=== PATIENT | female | born 1955 | race Caucasian/White ===

== ENCOUNTER 2017-07-18 15:03 | Inpatient (IN) | payer BC ==
[2017-07-18 16:33] LABS: Appearance,Urine Clear (Clear); Bilirubin,Urine Negative (Negative); Blood,Urine Negative (Negative); Color,Urine Yellow; Glucose,Urine (UA) 4+ (Negative); Ketones,Urine Trace (Negative); Leukocyte Esterase,Urine Small (Negative); Mucus,Urine Rare /hpf; Nitrite,Urine Negative (Negative); PH, Urine 5.5 (5.0-8.0); Protein,Urine Negative (Negative); RBC,Urine 5 /hpf (0-5); Specific Gravity,Urine 1.031 (1.001-1.035); Squamous Epithelial Cell,Urine 1 /hpf (0-4); Urobilinogen,Urine <2.0 mg/dL (<2.0); WBC,Urine 15 /hpf (0-5)
[2017-07-18] MEDS ORDERED: SODIUM CHLORIDE 0.9% 1,000 ML IV STA (16:46)
[2017-07-18] MEDS ORDERED: LORazepam 2 MG/ML INJ IV STA (16:47)
[2017-07-18] MEDS ORDERED: ACETAMINOPHEN TAB 500 MG TAB PO STA (16:47)
[2017-07-18 17:10] LABS: Basophils # (A) 0.1 k/uL (0-0.2); Basophils % (A) 0 %; Eosinophils # (A) 0.3 k/uL (0-0.7); Eosinophils % (A) 2 %; HCT 45.6 % (34.0-46.0); HGB 14.2 gm/dL (11.4-16.0); Lymphocytes # (A) 1.6 k/uL (1.0-4.8); Lymphocytes % (A) 10 %; MCH 26.6 pg (25.0-35.0); MCHC 31.2 g/dL (31.0-37.0); MCV 85.3 fL (80.0-100.0); Mean Platelet Volume 6.7; Monocytes # (A) 0.8 k/uL (0-1.0); Monocytes % (A) 5 %; Neutrophils # (A) 13.9 k/uL (1.3-7.7); Neutrophils % (A) 83 %; Platelet Count 376 k/uL (150-450); RBC 5.35 m/uL (3.80-5.40); RDW 14.3 % (11.5-15.5); WBC 16.7 k/uL (3.8-10.6)
[2017-07-18 17:20] LABS: ALT 21 U/L (9-52); AST 16 U/L (14-36); Albumin 4.1 g/dL (3.5-5.0); Alkaline Phosphatase 131 U/L (38-126); Anion Gap 13 mmol/L; Blood Urea Nitrogen 19 mg/dL (7-17); Calcium 10.2 mg/dL (8.4-10.2); Carbon Dioxide 27 mmol/L (22-30); Chloride 96 mmol/L (98-107); Glucose 169 mg/dL (74-99); Potassium 3.7 mmol/L (3.5-5.1); Prothrombin Time 9.6 sec (9.0-12.0); Sodium 136 mmol/L (137-145); Total Bilirubin 0.6 mg/dL (0.2-1.3); Total Protein 7.3 g/dL (6.3-8.2)
[2017-07-18 17:28] LABS: Partial Thromboplastin Time 20.7 sec (22.0-30.0)
--- NOTE | 2017-07-18 17:30 | XR ---
EXAMINATION TYPE: XR chest 2V DATE OF EXAM: 07/18/2017 COMPARISON: 12/24/2009 HISTORY: Cough and fever for 3 weeks TECHNIQUE: Frontal and lateral views of the chest are obtained. FINDINGS: There is no focal air space opacity, pleural effusion, or pneumothorax seen. The cardiac silhouette size is within normal limits. The osseous structures are intact. Mild acromio clavicular arthropathy and degenerative changes of the thoracic spine are noted. IMPRESSION: No acute cardiopulmonary process.
--- NOTE | 2017-07-18 17:34 | ED ---
General Adult HPI - General Chief complaint: Recheck/Abnormal Lab/Rx Stated complaint: poss blood infection Time Seen by Provider: 07/18/17 16:31 Source: patient, RN notes reviewed Mode of arrival: ambulatory Limitations: no limitations - History of Present Illness Initial comments: 62-year-old female presents to the emergency department with a chief complaint of body shakes. She's been sick on and off for the last month she's been on different antibiotics. She states last night she just started shaking. She states she's had fevers up to 100.3. They called her doctor and referred here. She has a falls traumas or injuries. She states she has had a cough. They were concerned due to her continued symptoms so they thought that she should be seen.Patient denies any recent shortness of breath, chest pain, back pain, abdominal pain, nausea vomiting, numbness or tingling, dysuria or hematuria, constipation or diarrhea, headaches or visual changes, or any other current symptoms. - Related Data Home Medications Medication Instructions Recorded Confirmed Aspirin EC [Ecotrin Low Dose] 81 mg PO BID 07/18/17 07/18/17 Atorvastatin [Lipitor] 40 mg PO DAILY 07/18/17 07/18/17 Canagliflozin [Invokana] 100 mg PO DAILY 07/18/17 07/18/17 Cetirizine HCl [Zyrtec] 10 mg PO HS 07/18/17 07/18/17 INSULIN LISPRO (humaLOG) [humaLOG] See Protocol SQ AC-TID PRN 07/18/17 07/18/17 Insulin Glargine [Lantus] 100 unit SQ HS 07/18/17 07/18/17 Levothyroxine Sodium [Levoxyl] 50 mcg PO HS 07/18/17 07/18/17 Losartan Potassium [Cozaar] 100 mg PO DAILY 07/18/17 07/18/17 Omeprazole 20 mg PO BID 07/18/17 07/18/17 Triamterene/Hydrochlorothiazid 1 tab PO DAILY 07/18/17 07/18/17 [Triamterene-Hctz 37.5-25 mg Tb] amLODIPine [Norvasc] 10 mg PO DAILY 07/18/17 07/18/17 Allergies Allergy/AdvReac Type Severity Reaction Status Date / Time azithromycin AdvReac Nausea & Verified 07/18/17 16:31 Vomiting Review of Systems ROS Statement: Those systems with pertinent positive or pertinent negative responses have been documented in the HPI. ROS Other: All systems not noted in ROS Statement are negative. Past Medical History Past Medical History: Diabetes Mellitus, GERD/Reflux, Hyperlipidemia, Hypertension, Sleep Apnea/CPAP/BIPAP History of Any Multi-Drug Resistant Organisms: None Reported Past Surgical History: Cholecystectomy, Hysterectomy, Tubal Ligation Additional Past Surgical History / Comment(s): D AND c, RECTOCELE, BLADDER SLING Past Psychological History: No Psychological Hx Reported Smoking Status: Never smoker Past Alcohol Use History: Occasional Past Drug Use History: None Reported General Exam - General Exam Comments Initial Comments: General: The patient is awake and alert, in no distress, and does not appear acutely ill. Eye: Pupils are equal, round and reactive to light, extra-ocular movements are intact; there is normal conjunctiva bilaterally. No signs of icterus. Ears, nose, mouth and throat: There are moist mucous membranes. Neck: The neck is supple, there is no tenderness. Cardiovascular: There is a regular rate and rhythm. No murmur, rub or gallop is appreciated. Respiratory: Lungs are clear to auscultation, respirations are non-labored, breath sounds are equal. No wheezes, stridor, rales, or rhonchi. Gastrointestinal: Soft, non-distended, non-tender abdomen without masses or organomegaly noted. There is no rebound or guarding present. No CVA tenderness. Bowel sounds are unremarkable. Back: There is no tenderness to palpation in the midline. There is no obvious deformity. No rashes noted. Musculoskeletal: Normal ROM, no tenderness, There is no pedal edema. There is no calf tenderness or swelling. Sensation intact. Pulses equal bilaterally 2+. Neurological: CN II-XII intact, There are no obvious motor or sensory deficits. Coordination appears grossly intact. Speech is normal. Skin: Skin is warm and dry and no rashes or lesions are noted. Psychiatric: Cooperative, appropriate mood & affect, normal judgment. Limitations: no limitations Course Vital Signs 07/18/17 07/18/17 15:39 16:37 Temperature 98.9 F 99.3 F Pulse Rate 111 H 110 H Respiratory 18 18 Rate Blood Pressure 133/78 137/74 O2 Sat by Pulse 97 98 Oximetry Medical Decision Making - Medical Decision Making 62-year-old female presents for shaking. This time patient does appear to have elevated white blood cell, along with UTI. Patient has been on multiple antibiotics outpatient with no improvement. This and we will start patient on Levaquin. Does appear the UTI. The source. Patient's blood pressure has remained stable here. Patient will be admitted at this time. Patient is in agreement with this plan. Patient will be admitted to Dr. Lion. All questions have been answered. - Lab Data Result diagrams: 07/18/17 16:54 07/18/17 16:54 Lab Results 07/18/17 07/18/17 07/18/17 Range/Units 16:13 16:54 16:54 WBC 16.7 H (3.8-10.6) k/uL RBC 5.35 (3.80-5.40) m/uL Hgb 14.2 (11.4-16.0) gm/dL Hct 45.6 (34.0-46.0) % MCV 85.3 (80.0-100.0) fL MCH 26.6 (25.0-35.0) pg MCHC 31.2 (31.0-37.0) g/dL RDW 14.3 (11.5-15.5) % Plt Count 376 (150-450) k/uL Neutrophils % 83 % Lymphocytes % 10 % Monocytes % 5 % Eosinophils % 2 % Basophils % 0 % Neutrophils # 13.9 H (1.3-7.7) k/uL Lymphocytes # 1.6 (1.0-4.8) k/uL Monocytes # 0.8 (0-1.0) k/uL Eosinophils # 0.3 (0-0.7) k/uL Basophils # 0.1 (0-0.2) k/uL PT (9.0-12.0) sec INR (<1.2) APTT (22.0-30.0) sec Sodium 136 L (137-145) mmol/L Potassium 3.7 (3.5-5.1) mmol/L Chloride 96 L (98-107) mmol/L Carbon Dioxide 27 (22-30) mmol/L Anion Gap 13 mmol/L BUN 19 H (7-17) mg/dL Creatinine 0.70 (0.52-1.04) mg/dL Est GFR (MDRD) Af Amer >60 (>60 ml/min/1.73 sqM) Est GFR (MDRD) Non-Af >60 (>60 ml/min/1.73 sqM) Glucose 169 H (74-99) mg/dL Plasma Lactic Acid [place] (0.7-2.0) mmol/L Calcium 10.2 (8.4-10.2) mg/dL Total Bilirubin 0.6 (0.2-1.3) mg/dL AST 16 (14-36) U/L ALT 21 (9-52) U/L Alkaline Phosphatase 131 H (38-126) U/L Total Protein 7.3 (6.3-8.2) g/dL Albumin 4.1 (3.5-5.0) g/dL Urine Color Yellow Urine Appearance Clear (Clear) Urine pH 5.5 (5.0-8.0) Ur Specific [place] 1.031 (1.001-1.035) Urine Protein Negative (Negative) Urine Glucose (UA) 4+ H (Negative) Urine Ketones Trace H (Negative) Urine Blood Negative (Negative) Urine Nitrite Negative (Negative) Urine Bilirubin Negative (Negative) Urine Urobilinogen <2.0 (<2.0) mg/dL Ur Leukocyte Esterase Small H (Negative) Urine RBC 5 (0-5) /hpf Urine WBC 15 H (0-5) /hpf Ur Squamous Epith Cells 1 (0-4) /hpf Urine Mucus Rare H (None) /hpf 07/18/17 07/18/17 Range/Units 16:54 16:54 WBC (3.8-10.6) k/uL RBC (3.80-5.40) m/uL Hgb (11.4-16.0) gm/dL Hct (34.0-46.0) % MCV (80.0-100.0) fL MCH (25.0-35.0) pg MCHC (31.0-37.0) g/dL RDW (11.5-15.5) % Plt Count (150-450) k/uL Neutrophils % % Lymphocytes % % Monocytes % % Eosinophils % % Basophils % % Neutrophils # (1.3-7.7) k/uL Lymphocytes # (1.0-4.8) k/uL Monocytes # (0-1.0) k/uL Eosinophils # (0-0.7) k/uL Basophils # (0-0.2) k/uL PT 9.6 (9.0-12.0) sec INR 1.0 (<1.2) APTT 20.7 L (22.0-30.0) sec Sodium (137-145) mmol/L Potassium (3.5-5.1) mmol/L Chloride (98-107) mmol/L Carbon Dioxide (22-30) mmol/L Anion Gap mmol/L BUN (7-17) mg/dL Creatinine (0.52-1.04) mg/dL Est GFR (MDRD) Af Amer (>60 ml/min/1.73 sqM) Est GFR (MDRD) Non-Af (>60 ml/min/1.73 sqM) Glucose (74-99) mg/dL Plasma Lactic Acid [place] 1.4 (0.7-2.0) mmol/L Calcium (8.4-10.2) mg/dL Total Bilirubin (0.2-1.3) mg/dL AST (14-36) U/L ALT (9-52) U/L Alkaline Phosphatase (38-126) U/L Total Protein (6.3-8.2) g/dL Albumin (3.5-5.0) g/dL Urine Color Urine Appearance (Clear) Urine pH (5.0-8.0) Ur Specific [place] (1.001-1.035) Urine Protein (Negative) Urine Glucose (UA) (Negative) Urine Ketones (Negative) Urine Blood (Negative) Urine Nitrite (Negative) Urine Bilirubin (Negative) Urine Urobilinogen (<2.0) mg/dL Ur Leukocyte Esterase (Negative) Urine RBC (0-5) /hpf Urine WBC (0-5) /hpf Ur Squamous Epith Cells (0-4) /hpf Urine Mucus (None) /hpf - Radiology Data Radiology results: report reviewed, image reviewed Disposition Clinical Impression: UTI (urinary tract infection), Failure of outpatient treatment Disposition: ADMITTED IP TO THIS [facility] Condition: Stable Referrals: Rusty Arenas DO [Primary Care Provider] - 1-2 days Decision Date: 07/18/17 Decision Time: 18:08
[2017-07-18] MEDS ORDERED: NALOXONE 0.4 MG/ML 1 ML VIAL IV PRN (18:08)
[2017-07-18] MEDS ORDERED: IBUPROFEN 400 MG TAB PO PRN (18:08)
[2017-07-18] MEDS ORDERED: ACETAMINOPHEN TAB 325 MG TAB PO PRN (18:08)
[2017-07-18 19:31] VITALS: BMI 41.7
[2017-07-18 19:58] LABS: Glucose,Whole Blood 131 mg/dL (75-99)
[2017-07-18] MEDS: LORATADINE 10 MG TAB PO SCH (20:32)
[2017-07-18] MEDS: PANTOPRAZOLE 40 MG TABLET PO SCH (20:32)
[2017-07-18] MEDS: ASPIRIN 81 MG PO SCH (20:32)
[2017-07-18] MEDS: LEVOTHYROXINE 50 MCG TAB PO SCH (20:32)
[2017-07-18] MEDS: INSULIN ASPART 100 UNIT/ML 1 ML 10 ML VIAL SQ SCH (20:34)
[2017-07-18] MEDS ORDERED: LEVOFLOXACIN 500MG-D5W PMX 500 MG in DEXTROSE/WATER 1 100ML.BAG IVPB SCH (21:00)
[2017-07-18] MEDS: INSULIN DETEMIR 100 UNIT/ML 10 ML VIAL SQ SCH (22:12)
[2017-07-18] MEDS: SODIUM CHLORIDE 0.9% 1,000 ML IV SCH (23:22)
[2017-07-19] MEDS: SODIUM CHLORIDE 0.9% 1,000 ML IV SCH ×2 (06:15→07:00)
[2017-07-19 07:11] LABS: Glucose,Whole Blood 108 mg/dL (75-99)
[2017-07-19] MEDS: INSULIN ASPART 100 UNIT/ML 1 ML 10 ML VIAL SQ SCH ×4 (07:40→21:20)
[2017-07-19] MEDS: PANTOPRAZOLE 40 MG TABLET PO SCH ×2 (07:47→20:55)
[2017-07-19] MEDS: ATORVASTATIN 40 MG TAB PO SCH (07:47)
[2017-07-19] MEDS: amLODIPine 10 MG TAB PO SCH (07:47)
[2017-07-19] MEDS: ASPIRIN 81 MG PO SCH ×2 (07:47→20:54)
[2017-07-19] MEDS: LOSARTAN 50 MG TAB PO SCH (07:47)
--- NOTE | 2017-07-19 07:49 | HP ---
HISTORY AND PHYSICAL DATE OF SERVICE: 07/18/2017 I am covering for Dr. Arenas. CHIEF COMPLAINTS: Fever and infection. HISTORY OF PRESENT ILLNESS: This 62-year-old woman with a past medical history of multiple medical problems including diabetes mellitus, GERD, hypertension, hyperlipidemia, sleep apnea, being followed by Dr. Arenas in the outpatient setting. Over the past several days, the patient had a fever on and off. Patient started shaking. The patient was playing cards with friends and unable to even complete the game. Fever up to 100.3 was noted and patient also had significant cough and sputum and nasal drainage also. The patient came to [facility] and was admitted for further evaluation and treatment. UTI was suspected. On admission, white count was 16.7 and UA showed 15 WBC. The flu swab is negative. Chest x-ray was done at admission, which I reviewed at length. It showed no acute pulmonary disease. There is no history of any palpitations, hematochezia or melena at this time. PAST MEDICAL HISTORY: History of diabetes mellitus, GERD, hypertension, hyperlipidemia, sleep apnea, cholecystectomy. MEDICATIONS: Medications prior to admission include: 1. Humalog scale a.c. t.i.d. 2. Levoxyl 50 mcg p.o. q.h.s. 3. Lantus 100 q.h.s. 4. Zyrtec 10 mg daily. 5. Norvasc 10 mg p.o. daily. 6. Triamterene hydrochlorothiazide 1 tab p.o. daily. 7. Omeprazole 20 mg p.o. b.i.d. 8. Cozaar 100 mg p.o. daily. 9. Invokana 100 mg p.o. daily. 10.Lipitor 40 mg p.o. daily. 11.Ecotrin 81 mg p.o. b.i.d. ALLERGIES: AZITHROMYCIN. FAMILY HISTORY: History of coronary artery disease, hypertension, diabetes in the family. SOCIAL HISTORY: No history of smoking. No history of alcohol intake. REVIEW OF SYSTEMS: ENT: No diminished hearing or diminished vision. CARDIOVASCULAR SYSTEM: No angina. RESPIRATORY SYSTEM: As mentioned earlier. GI: No nausea or vomiting. : As mentioned earlier. NERVOUS SYSTEM: No numbness or weakness. ALLERGY/IMMUNOLOGY: No history of asthma or hayfever. MUSCULOSKELETAL: as mentioned earlier. HEMATOLOGY/ONCOLOGY: No history of anemia. ENDOCRINE: No history of dm. CONSTITUTIONAL: As mentioned earlier. DERMATOLOGY: Negative. RHEUMATOLOGY: Negative. PSYCHIATRY: As mentioned earlier. PHYSICAL EXAMINATION: The patient is alert and oriented x3. Pulse is 93, blood pressure is 126/56, respirations 14, temperature 98.4, pulse ox 94% on room air. HEENT: Conjunctivae normal Oral mucosa moist. Neck is no jugular venous distention. No carotid bruit. No lymph node enlargement. CARDIOVASCULAR: S1 and S2 muffled. No S3 or S4. RESPIRATORY: Breath sounds diminished at the bases. A few scattered rhonchi and crackles. ABDOMEN: Soft, nontender. No mass palpable. LEGS: No edema, no swelling. NERVOUS SYSTEM: Higher functions as mentioned earlier. Moves all 4 limbs. No focal motor or sensory deficits. LYMPHATICS: No lymphadenopathy of the neck, axillae or groin. SKIN: No ulcer, rash or bleeding. LABS: WBC 16.7. Sodium 136. UA noted. ASSESSMENT: 1. Possible urinary tract infection with sepsis. 2. Possible acute purulent tracheobronchitis. 3. Hyponatremia. 4. Increased WBC. 5. History of diabetes mellitus. 6. History of gastroesophageal reflux disease. 7. Hypertension. 8. Hyperlipidemia. 9. Sleep apnea. 10.History of cholecystectomy. RECOMMENDATIONS AND DISCUSSION: In this 62-year-old woman who presented with multiple complex medical issues, we will monitor the patient closely. Continue the current medications. Continue symptomatic treatment. Patient was started on broad-spectrum IV antibiotics. Otherwise, I would recommend continue the rest of medications. The flu is negative. Resume the home medications and further recommendations to follow. A copy of the dictation forwarded to Dr. Arenas who is the primary physician. Dr. Arenas will follow. MMODL / IJN: [id number] / MTDD
[2017-07-19 08:03] LABS: Basophils % (A) 0 %; Eosinophils # (A) 0.2 k/uL (0-0.7); Eosinophils % (A) 3 %; HGB 12.3 gm/dL (11.4-16.0); Lymphocytes # (A) 2.1 k/uL (1.0-4.8); Lymphocytes % (A) 22 %; MCH 26.3 pg (25.0-35.0); MCHC 31.4 g/dL (31.0-37.0); MCV 83.7 fL (80.0-100.0); Mean Platelet Volume 6.8; Monocytes # (A) 0.5 k/uL (0-1.0); Monocytes % (A) 5 %; Neutrophils # (A) 6.6 k/uL (1.3-7.7); Neutrophils % (A) 68 %; Platelet Count 324 k/uL (150-450); RBC 4.66 m/uL (3.80-5.40); WBC 9.6 k/uL (3.8-10.6)
[2017-07-19 08:19] LABS: ALT 19 U/L (9-52); AST 12 U/L (14-36); Alkaline Phosphatase 95 U/L (38-126); Anion Gap 7 mmol/L; Blood Urea Nitrogen 15 mg/dL (7-17); Calcium 8.8 mg/dL (8.4-10.2); Carbon Dioxide 27 mmol/L (22-30); Chloride 104 mmol/L (98-107); Glucose 101 mg/dL (74-99); Potassium 3.6 mmol/L (3.5-5.1); Sodium 138 mmol/L (137-145); Total Bilirubin 0.5 mg/dL (0.2-1.3); Total Protein 5.6 g/dL (6.3-8.2)
[2017-07-19] MEDS: TRIAMTERENE-HCTZ 37.5-25MG 1 EACH TAB PO SCH (10:08)
[2017-07-19] MEDS: Canagliflozin [Invokana] 100 MG PO SCH (10:08)
[2017-07-19 11:41] LABS: Glucose,Whole Blood 99 mg/dL (75-99)
[2017-07-19 12:50] LABS: Hemoglobin A1C 9.8 % (4.0-6.0)
[2017-07-19 17:17] LABS: Glucose,Whole Blood 135 mg/dL (75-99)
[2017-07-19] MEDS: LEVOTHYROXINE 50 MCG TAB PO SCH (20:54)
[2017-07-19] MEDS: LORATADINE 10 MG TAB PO SCH (20:55)
[2017-07-19] MEDS ORDERED: LEVOFLOXACIN 500 MG TAB PO SCH (21:00)
[2017-07-19] MEDS ORDERED: INSULIN GLARGINE 100 UNIT SQ SCH (21:00)
[2017-07-19 21:09] LABS: Glucose,Whole Blood 148 mg/dL (75-99)
[2017-07-19] MEDS: INSULIN DETEMIR 100 UNIT/ML 10 ML VIAL SQ SCH (21:20)
--- NOTE | 2017-07-20 01:03 | PN ---
PROGRESS NOTE DATE OF SERVICE: 07/19/2017. HISTORY: The patient is a pleasant 62-year-old white female who has multiple medical problems, most glaring is diabetes type 2 and obstructive sleep apnea. Her diabetes is not well controlled. Over the past several days she has been have a pronounced fever on and off and she started shaking uncontrollably with rigors today. The patient became very weak and was unable to ambulate without significant effort. The patient was seen last night by Dr. Lion for admission through the Emergency Department and subsequently treated with sepsis protocol and for urinary tract infection. Flu swab was done, which was negative. PHYSICAL EXAM: She is alert and oriented x3. HEENT: Head is normocephalic, atraumatic. NECK: Supple. No JVD. HEART: Regular rate and rhythm. LUNGS: Clear to auscultation. ABDOMEN: Soft, nontender. No rebound, rigidity, guarding. EXTREMITIES: No cyanosis, clubbing or jaundice. NEUROLOGIC: Cranial nerves 2 through 12 grossly intact. She does have slight tremor to the extremities. IMPRESSION: 1. Urinary tract infection with sepsis. 2. Acute purulent tracheobronchitis. 3. Leukocytosis. 4. Diabetes. 5. Obstructive sleep apnea. PLAN: Continue to follow labs and blood cultures. Continue IV antibiotics and hydration. MMODL / IJN: [id number] /
[2017-07-20] MEDS: SODIUM CHLORIDE 0.9% 1,000 ML IV SCH (03:10)
[2017-07-20 07:07] LABS: Glucose,Whole Blood 72 mg/dL (75-99)
[2017-07-20 07:38] VITALS: RESP 16
[2017-07-20 07:51] VITALS: BP 162/87; TEMP 97.5
[2017-07-20] MEDS: amLODIPine 10 MG TAB PO SCH (08:50)
[2017-07-20] MEDS: ASPIRIN 81 MG PO SCH (08:50)
[2017-07-20] MEDS: ATORVASTATIN 40 MG TAB PO SCH (08:50)
[2017-07-20] MEDS: PANTOPRAZOLE 40 MG TABLET PO SCH (08:51)
[2017-07-20] MEDS: LOSARTAN 50 MG TAB PO SCH (08:51)
[2017-07-20] MEDS: TRIAMTERENE-HCTZ 37.5-25MG 1 EACH TAB PO SCH (08:51)
[2017-07-20] MEDS: Canagliflozin [Invokana] 100 MG PO SCH (08:51)
[2017-07-20] MEDS: INSULIN ASPART 100 UNIT/ML 1 ML 10 ML VIAL SQ SCH (08:55)
[2017-07-20 09:28] VITALS: PULSE 88
== END 2017-07-20 10:50 | disposition home or self-care (01) | DRG 872 ==
LOC: EC 15:03 → 5MS5E 18:17
PROVIDERS: ADMIT Family Medicine; ATTEND Family Medicine
DX: A41.9 Sepsis, unspecified organism (principal); E87.1 Hypo-osmolality and hyponatremia; N39.0 Urinary tract infection, site not specified; G47.33 Obstructive sleep apnea (adult) (pediatric); J20.9 Acute bronchitis, unspecified; K21.9 Gastro-esophageal reflux disease without esophagitis; I10 Essential (primary) hypertension; E78.5 Hyperlipidemia, unspecified; Z90.49 Acquired absence of other specified parts of digestive tract; Z90.710 Acquired absence of both cervix and uterus; E11.9 Type 2 diabetes mellitus without complications; Z79.82 Long term (current) use of aspirin; Z79.4 Long term (current) use of insulin; Z79.899 Other long term (current) drug therapy; Z88.1 Allergy status to other antibiotic agents
CPT/HCPCS: 36415; 71046; 80053; 81001; 83036; 83605; 85025; 85610; 85730; 87040; 87086; 87502; 96361; 96374; 99284

== ENCOUNTER → 2018-01-25 | Outpatient (CLI) | payer BC ==
--- NOTE | 2018-01-26 07:44 | MM ---
Reason for exam: screening (asymptomatic). Last mammogram was performed 6 years and 5 months ago. History: Patient is postmenopausal. Physical Findings: A clinical breast exam by your physician is recommended on an annual basis and results should be correlated with mammographic findings. MG 3D Screening Mammo W/Cad Bilateral CC and MLO view(s) were taken. Prior study comparison: August 17, 2011, bilateral digital screening mammo w/CAD. August 11, 2010, bilateral digital screening mammo w/CAD. No significant changes when compared with prior studies. ASSESSMENT: Negative, BI-RAD 1 RECOMMENDATION: Routine screening mammogram of both breasts in 1 year.
== END | disposition home or self-care (01) ==
LOC: RADMAMWWP 06:56
PROVIDERS: ATTEND Family Medicine
DX: Z12.31 Encounter for screening mammogram for malignant neoplasm of breast (principal)
CPT/HCPCS: 77063; 77067

== ENCOUNTER → 2020-03-26 | Outpatient (CLI) | payer MEDICARE, BC ==
--- NOTE | 2020-03-26 09:39 | XR ---
EXAMINATION TYPE: XR chest 2V DATE OF EXAM: 03/26/2020 COMPARISON: Prior chest x-ray 07/18/2017 HISTORY: Pleural effusion shortness of breath TECHNIQUE: Frontal and lateral views of the chest are obtained. FINDINGS: There is blunting of the left costophrenic angle. Aorta is dense. Cardiac mediastinal silh ouette thought to be stable accounting for rotation. No evident pneumothorax. IMPRESSION: Small left pleural effusion and associated atelectasis, correlate to exclude pneumonia. Follow-up recommended.
== END | disposition home or self-care (01) ==
LOC: RADXRMAIN 09:04
PROVIDERS: ATTEND Family Medicine
DX: J90 Pleural effusion, not elsewhere classified (principal); J98.11 Atelectasis
CPT/HCPCS: 71046

== ENCOUNTER 2020-04-02 13:53 | Emergency (ER) | payer MEDICARE, BC ==
[2020-04-02 14:36] LABS: Appearance,Urine Clear (Clear); Bilirubin,Urine Negative (Negative); Blood,Urine Negative (Negative); Color,Urine Yellow; Glucose,Urine (UA) 4+ (Negative); Ketones,Urine Negative (Negative); Leukocyte Esterase,Urine Negative (Negative); Nitrite,Urine Negative (Negative); Protein,Urine Negative (Negative); Specific Gravity,Urine 1.034 (1.001-1.035); Urobilinogen,Urine <2.0 mg/dL (<2.0)
[2020-04-02] MEDS ORDERED: ACETAMINOPHEN TAB 500 MG TAB PO STA (15:04)
[2020-04-02] MEDS ORDERED: SODIUM CHLORIDE 0.9% 500 ML 500 ML IV STA (15:06)
--- NOTE | 2020-04-02 15:20 | ED ---
General Adult HPI - General Chief complaint: Fever Stated complaint: AFIB/SOB/COUGH/CONFUSION Time Seen by Provider: 04/02/20 15:03 Source: patient Mode of arrival: ambulatory Limitations: no limitations - History of Present Illness Initial comments: Dictation was produced using [employer] dictation software. please excuse any grammatical, word or spelling errors. This patient was cared for during a federal and state declared state of emergency secondary to Covid 19 Chief Complaint: 64-year-old female presents with 3-4 days of cough, congestion History of Present Illness: Is a 64-year-old female she presents today with cough, congestion. She was recently diagnosed with atrial fibrillation. She just started taken Alquist. Patient was diagnosed with A. fib approximately 1-2 weeks ago. States that over the last 3-4 days she's developed a nonproductive cough. She also has a sensation of unsteadiness to her gait. She denies any numbness and paresthesias to the arms or legs. Denies any dysuria. No diarrhea or abdominal pain. She has no chest pain. No sore throat. She does feel congested in her nose. No obvious contacts with anyone with Covid 19. She's had similar symptoms ask my one month ago and was on antibiotics. Patient does have constitutional symptoms. She states that she know she had a fever until being in triage when they did her vitals. Concerned because she's had sepsis in the past. The ROS documented in this emergency department record has been reviewed and confirmed by me. Those systems with pertinent positive or negative responses have been documented in the HPI. All other systems are other negative and/or noncontributory. PHYSICAL EXAM: General Impression: Alert and oriented x3, not in acute distress HEENT: Normocephalic atraumatic, extra-ocular movements intact, pupils equal and reactive to light bilaterally, mucous membranes moist, no oropharyngeal erythema Cardiovascular: Heart regular rate and rhythm Chest: Able to complete full sentences, no retractions, no tachypnea, lungs clear to auscultation bilaterally Abdomen: abdomen soft, non-tender, non-distended, no organomegaly Musculoskeletal: Pulses present and equal in all extremities, no peripheral edema Motor: no focal deficits noted Neurological: CN II-XII grossly intact, no focal motor or sensory deficits noted Skin: Intact with no visualized rashes Psych: Normal affect and mood ED course: 64-year-old female presents with infectious respiratory symptoms. Vital signs upon arrival shows temperature 102.4, heart rate of 123, rest of vital signs within acceptable limits. Laboratory evaluation obtained. No leukocytosis. Coag panel is unremarkable. Metabolic panel shows sodium 120 likely secondary to pseudohyponatremia from elevated glucose. BUN is 30 and creatinine 0.86 concerning for mild dehydration. Urinalysis shows 4+ glucose. Rapid coronavirus test is negative. CRP is mildly elevated at 16.2. Chest x-ray shows small right lung field pulmonary nodule. Patient observed in emergency Department per she is given Tylenol and intravenous fluids. Repeat vitals are improved. Well-appearing upo n reevaluation and reexamination. Disposition options were discussed with patient and she is agreeable for discharge to return to the emergency department if her symptoms get worse. At this point is concern that patient's symptoms are secondary to bacterial sinusitis. She'll be given prescription for antibiotics. Patient was told that her symptoms could reflect coronavirus with false negative test. She does have a pending PCR study. She is advised to follow-up with her primary care physician for reevaluation after antibiotics and to follow-up for right pulmonary lung nodule. An is agreeable to plan. - Related Data Home Medications Medication Instructions Recorded Confirmed Aspirin EC [Ecotrin Low Dose] 81 mg PO BID 07/18/17 07/18/17 Atorvastatin [Lipitor] 40 mg PO DAILY 07/18/17 07/18/17 Canagliflozin [Invokana] 100 mg PO DAILY 07/18/17 07/18/17 Cetirizine HCl [Zyrtec] 10 mg PO HS 07/18/17 07/18/17 INSULIN LISPRO (humaLOG) [humaLOG] See Protocol SQ AC-TID PRN 07/18/17 07/18/17 Insulin Glargine [Lantus] 100 unit SQ HS 07/18/17 07/18/17 Levothyroxine Sodium [Levoxyl] 50 mcg PO HS 07/18/17 07/18/17 Losartan Potassium [Cozaar] 100 mg PO DAILY 07/18/17 07/18/17 Omeprazole 20 mg PO BID 07/18/17 07/18/17 Triamterene/Hydrochlorothiazid 1 tab PO DAILY 07/18/17 07/18/17 [Triamterene-Hctz 37.5-25 mg Tb] amLODIPine [Norvasc] 10 mg PO DAILY 07/18/17 07/18/17 Previous Rx's Medication Instructions Recorded Levofloxacin [Levaquin] 500 mg PO HS 7 Days #7 tab 07/20/17 Amoxic-Pot Clav 875-125Mg 1 tab PO BID 10 Days #20 tab 04/02/20 [Augmentin 875-125] Allergies Allergy/AdvReac Type Severity Reaction Status Date / Time azithromycin AdvReac Nausea & Verified 04/02/20 14:09 Vomiting Review of Systems ROS Statement: Those systems with pertinent positive or pertinent negative responses have been documented in the HPI. ROS Other: All systems not noted in ROS Statement are negative. Past Medical History Past Medical History: Atrial Fibrillation, Diabetes Mellitus, GERD/Reflux, Hyperlipidemia, Hypertension, Sleep Apnea/CPAP/BIPAP History of Any Multi-Drug Resistant Organisms: None Reported Past Surgical History: Cholecystectomy, Hysterectomy, Tubal Ligation Additional Past Surgical History / Comment(s): D AND c, RECTOCELE, BLADDER SLING Past Anesthesia/Blood Transfusion Reactions: No Reported Reaction Past Psychological History: No Psychological Hx Reported Smoking Status: Never smoker Past Alcohol Use History: Occasional Past Drug Use History: None Reported - Past Family History Father Family Medical History: Coronary Artery Disease (CAD), Hypertension Additional Family Medical History / Comment(s): DM General Exam Limitations: no limitations Course Vital Signs 04/02/20 04/02/20 14:03 17:10 Temperature 102.4 F H 101.6 F H Pulse Rate 123 H 106 H Respiratory 24 20 Rate Blood Pressure 117/75 O2 Sat by Pulse 97 Oximetry Medical Decision Making - Lab Data Result diagrams: 04/02/20 15:35 04/02/20 15:35 Lab Results 04/02/20 04/02/20 04/02/20 Range/Units 14:10 14:19 15:35 WBC 9.3 (3.8-10.6) k/uL RBC 4.98 (3.80-5.40) m/uL Hgb 13.1 (11.4-16.0) gm/dL Hct 40.6 (34.0-46.0) % MCV 81.6 (80.0-100.0) fL MCH 26.3 (25.0-35.0) pg MCHC 32.3 (31.0-37.0) g/dL RDW 14.2 (11.5-15.5) % Plt Count 509 H (150-450) k/uL MPV 6.8 Neutrophils % 76 % Lymphocytes % 13 % Monocytes % 7 % Eosinophils % 2 % Basophils % 1 % Neutrophils # 7.1 (1.3-7.7) k/uL Lymphocytes # 1.2 (1.0-4.8) k/uL Monocytes # 0.6 (0-1.0) k/uL Eosinophils # 0.2 (0-0.7) k/uL Basophils # 0.1 (0-0.2) k/uL PT (9.0-12.0) sec INR (<1.2) APTT (22.0-30.0) sec Sodium (137-145) mmol/L Potassium (3.5-5.1) mmol/L Chloride (98-107) mmol/L Carbon Dioxide (22-30) mmol/L Anion Gap mmol/L BUN (7-17) mg/dL Creatinine (0.52-1.04) mg/dL Est GFR (CKD-EPI)AfAm (>60 ml/min/1.73 sqM) Est GFR (CKD-EPI)NonAf (>60 ml/min/1.73 sqM) Glucose (74-99) mg/dL Plasma Lactic Acid Pilo (0.7-2.0) mmol/L Calcium (8.4-10.2) mg/dL Magnesium (1.6-2.3) mg/dL Total Bilirubin (0.2-1.3) mg/dL AST (14-36) U/L ALT (4-34) U/L Alkaline Phosphatase (38-126) U/L C-Reactive Protein (<10.0) mg/L Total Protein (6.3-8.2) g/dL Albumin (3.5-5.0) g/dL Urine Color Yellow Urine Appearance Clear (Clear) Urine pH 6.0 (5.0-8.0) Ur Specific [place] 1.034 (1.001-1.035) Urine Protein Negative (Negative) Urine Glucose (UA) 4+ H (Negative) Urine Ketones Negative (Negative) Urine Blood Negative (Negative) Urine Nitrite Negative (Negative) Urine Bilirubin Negative (Negative) Urine Urobilinogen <2.0 (<2.0) mg/dL Ur Leukocyte Esterase Negative (Negative) Coronavirus (PCR) Not Detected (Not Detectd) 04/02/20 04/02/20 04/02/20 Range/Units 15:35 15:35 15:35 WBC (3.8-10.6) k/uL RBC (3.80-5.40) m/uL Hgb (11.4-16.0) gm/dL Hct (34.0-46.0) % MCV (80.0-100.0) fL MCH (25.0-35.0) pg MCHC (31.0-37.0) g/dL RDW (11.5-15.5) % Plt Count (150-450) k/uL MPV Neutrophils % % Lymphocytes % % Monocytes % % Eosinophils % % Basophils % % Neutrophils # (1.3-7.7) k/uL Lymphocytes # (1.0-4.8) k/uL Monocytes # (0-1.0) k/uL Eosinophils # (0-0.7) k/uL Basophils # (0-0.2) k/uL PT 10.2 (9.0-12.0) sec INR 1.0 (<1.2) APTT 25.2 (22.0-30.0) sec Sodium 128 L (137-145) mmol/L Potassium 4.2 (3.5-5.1) mmol/L Chloride 97 L (98-107) mmol/L Carbon Dioxide 22 (22-30) mmol/L Anion Gap 9 mmol/L BUN 30 H (7-17) mg/dL Creatinine 0.86 (0.52-1.04) mg/dL Est GFR (CKD-EPI)AfAm 83 (>60 ml/min/1.73 sqM) Est GFR (CKD-EPI)NonAf 72 (>60 ml/min/1.73 sqM) Glucose 255 H (74-99) mg/dL Plasma Lactic Acid Pilo 2.0 (0.7-2.0) mmol/L Calcium 9.7 (8.4-10.2) mg/dL Magnesium 1.9 (1.6-2.3) mg/dL Total Bilirubin 0.8 (0.2-1.3) mg/dL AST 28 (14-36) U/L ALT 16 (4-34) U/L Alkaline Phosphatase 127 H (38-126) U/L C-Reactive Protein 16.2 H (<10.0) mg/L Total Protein 7.5 (6.3-8.2) g/dL Albumin 4.0 (3.5-5.0) g/dL Urine Color Urine Appearance (Clear) Urine pH (5.0-8.0) Ur Specific [place] (1.001-1.035) Urine Protein (Negative) Urine Glucose (UA) (Negative) Urine Ketones (Negative) Urine Blood (Negative) Urine Nitrite (Negative) Urine Bilirubin (Negative) Urine Urobilinogen (<2.0) mg/dL Ur Leukocyte Esterase (Negative) Coronavirus (PCR) (Not Detectd) Disposition Clinical Impression: Fever Disposition: HOME SELF-CARE Condition: Fair Instructions (If sedation given, give patient instructions): Fever in Adults (ED), Pulmonary Nodules (ED) Additional Instructions: 1. You were evaluated today for fever. 2. At this point there is no obvious signs for bacterial infection. However UR given prescription for antibiotics to treat sinusitis. 3. On x-ray there is an incidental finding of 7 mm pulmonary nodule. You must follow-up with her primary care physician regarding this. 4. Return to the emergency Department with any worsening symptoms. 5. Your prescriptions were sent to your preferred pharmacy. Prescriptions: Amoxic-Pot Clav 875-125Mg [Augmentin 875-125] 1 tab PO BID 10 Days #20 tab Is patient prescribed a controlled substance at d/c from ED?: No Referrals: Rusty Arenas DO [Primary Care Provider] - 1-2 days Time of Disposition: 17:24
--- NOTE | 2020-04-02 15:27 | XR ---
EXAMINATION TYPE: XR chest 2V DATE OF EXAM: 04/02/2020 COMPARISON: NONE TECHNIQUE: PA and lateral views submitted. HISTORY: Cough FINDINGS: The lungs are clear and there is no pneumothorax, pleural effusion, or focal pneumonia. Heart size mildly prominent. A 7 mm nodule in the right upper lobe. IMPRESSION: 1. 7 mm right upper lobe pulmonary nodule could be related to superimposed structures recommend CT of the chest for confirmation.
[2020-04-02 16:11] LABS: Basophils # (A) 0.1 k/uL (0-0.2); Basophils % (A) 1 %; Eosinophils # (A) 0.2 k/uL (0-0.7); Eosinophils % (A) 2 %; HCT 40.6 % (34.0-46.0); HGB 13.1 gm/dL (11.4-16.0); Lymphocytes # (A) 1.2 k/uL (1.0-4.8); Lymphocytes % (A) 13 %; MCH 26.3 pg (25.0-35.0); MCHC 32.3 g/dL (31.0-37.0); MCV 81.6 fL (80.0-100.0); Mean Platelet Volume 6.8; Monocytes # (A) 0.6 k/uL (0-1.0); Monocytes % (A) 7 %; Neutrophils # (A) 7.1 k/uL (1.3-7.7); Neutrophils % (A) 76 %; Platelet Count 509 k/uL (150-450); RBC 4.98 m/uL (3.80-5.40); RDW 14.2 % (11.5-15.5); WBC 9.3 k/uL (3.8-10.6)
[2020-04-02 16:22] LABS: C Reactive Protein 16.2 mg/L (<10.0); Total Protein 7.5 g/dL (6.3-8.2)
[2020-04-02 16:32] LABS: Calcium 9.7 mg/dL (8.4-10.2); Magnesium 1.9 mg/dL (1.6-2.3); Potassium 4.2 mmol/L (3.5-5.1); Total Bilirubin 0.8 mg/dL (0.2-1.3)
[2020-04-02 16:42] LABS: Partial Thromboplastin Time 25.2 sec (22.0-30.0); Prothrombin Time 10.2 sec (9.0-12.0)
[2020-04-02 17:47] VITALS: RESP 18
[2020-04-02 17:53] VITALS: BP 107/67; PULSE 99; TEMP 99.8
== END 2020-04-02 17:54 | disposition home or self-care (01) ==
LOC: EC 13:53
DX: R50.9 Fever, unspecified (principal); R05 Cough; I48.91 Unspecified atrial fibrillation; E11.9 Type 2 diabetes mellitus without complications; K21.9 Gastro-esophageal reflux disease without esophagitis; E78.5 Hyperlipidemia, unspecified; I10 Essential (primary) hypertension; G47.33 Obstructive sleep apnea (adult) (pediatric); Z79.4 Long term (current) use of insulin; Z79.899 Other long term (current) drug therapy; Z79.01 Long term (current) use of anticoagulants; Z88.1 Allergy status to other antibiotic agents; Z99.89 Dependence on other enabling machines and devices; Z20.828 Contact with and (suspected) exposure to other viral communicable diseases
CPT/HCPCS: 36415; 93005; 80053; 83605; 83735; 85025; 85610; 85730; 86140; 81003; 87040; 87635; 71046; 99284; 96360; U0003

== ENCOUNTER → 2020-04-08 | Outpatient (CLI) | payer MEDICARE, BC ==
--- NOTE | 2020-04-08 08:27 | CT ---
EXAMINATION TYPE: CT chest wo/w con DATE OF EXAM: 04/08/2020 COMPARISON: None HISTORY: Pulmonary nodule CT DLP: 1376 mGycm Automated exposure control for dose reduction was used. CONTRAST: CT scan of the chest is performed without and with IV Contrast, patient injected with 100 ml mL of Is ovue 300. FINDINGS: LUNGS: The lungs are grossly clear, there is no concerning parenchymal mass or nodule identified. T here is no pleural effusion or pneumothorax seen. The tracheobronchial tree is patent. MEDIASTINUM: There are no greater than 1 cm hilar or mediastinal lymph nodes. No pericardial effusi on is seen. Thoracic aorta is of normal caliber. The heart is not enlarged. UPPER ABDOMEN: No significant abnormality appreciated. OTHER: No additional significant abnormality is seen. IMPRESSION: No distinct pulmonary nodule appreciated.
== END | disposition home or self-care (01) ==
LOC: RADCTMAIN 06:27
PROVIDERS: ATTEND Family Medicine
DX: R91.1 Solitary pulmonary nodule (principal)
CPT/HCPCS: 71270; Q9967

== ENCOUNTER 2020-04-15 10:10 | Observation (INO) | payer MEDICARE, BC ==
[2020-04-15] MEDS ORDERED: SODIUM CHLORIDE 0.9% 1,000 ML IV STA ×2 (10:30→12:26)
[2020-04-15 11:01] LABS: Basophils # (A) 0.1 k/uL (0-0.2); Basophils % (A) 1 %; Eosinophils # (A) 0.3 k/uL (0-0.7); Eosinophils % (A) 3 %; HCT 40.1 % (34.0-46.0); HGB 13.7 gm/dL (11.4-16.0); Lymphocytes # (A) 0.9 k/uL (1.0-4.8); Lymphocytes % (A) 11 %; MCH 27.9 pg (25.0-35.0); MCHC 34.3 g/dL (31.0-37.0); MCV 81.4 fL (80.0-100.0); Mean Platelet Volume 7.1; Monocytes # (A) 0.5 k/uL (0-1.0); Monocytes % (A) 7 %; Neutrophils # (A) 6.1 k/uL (1.3-7.7); Neutrophils % (A) 77 %; Platelet Count 375 k/uL (150-450); RBC 4.93 m/uL (3.80-5.40); RDW 14.6 % (11.5-15.5)
--- NOTE | 2020-04-15 11:05 | CT ---
EXAMINATION TYPE: CT brain wo con DATE OF EXAM: 04/15/2020 COMPARISON: December 24, 2009 HISTORY: Slurred speech, weakness CT DLP: 1090.[address] of the brain was performed. The ventricles, basal cisterns and sulci overlying the cerebral convexities demonstrate mild enlargem ent. There is no evidence for intracranial hemorrhage or sulcal effacement. There is decreased attenuation about the periventricular white matter and deep white matter of both c erebral hemispheres, compatible with chronic small vessel ischemia. Differential diagnosis does inclu de demyelination. No mass effects are seen.No midline shift. Osseous calvarium is intact. If symptoms persist consider MRI. IMPRESSION: 1. Age related atrophic and chronic small vessel ischemic change without acute intracranial process s een at this time.
[2020-04-15 11:14] LABS: Albumin 4.1 g/dL (3.5-5.0); Calcium 9.9 mg/dL (8.4-10.2); Phosphorus 3.9 mg/dL (2.5-4.5); Total Bilirubin 0.9 mg/dL (0.2-1.3); Total Protein 7.2 g/dL (6.3-8.2)
[2020-04-15 11:16] LABS: Potassium 3.6 mmol/L (3.5-5.1)
[2020-04-15 11:21] LABS: Prothrombin Time 10.8 sec (9.0-12.0)
--- NOTE | 2020-04-15 11:40 | XR ---
EXAMINATION TYPE: XR chest 2V DATE OF EXAM: 04/15/2020 COMPARISON: 04/02/2020 HISTORY: Shortness of breath TECHNIQUE: Frontal and lateral views of the chest are obtained. FINDINGS: Scattered senescent parenchymal changes noted. Hyperinflation compatible with COPD. No evidence for infiltrate. No evidence for atelectasis. Heart size is stable. Mediastinal structures are stable and grossly unremarkable. No evidence for hilar prominence. Degenerative changes dorsal spine. IMPRESSION: 1. No evidence for acute pulmonary disease.
[2020-04-15 11:54] LABS: Appearance,Urine Clear (Clear); Bilirubin,Urine Negative (Negative); Blood,Urine Negative (Negative); Color,Urine Yellow; Glucose,Urine (UA) 4+ (Negative); Hyaline Casts,Urine 38 /lpf (0-2); Ketones,Urine Negative (Negative); Leukocyte Esterase,Urine Trace (Negative); Mucus,Urine Few /hpf; Nitrite,Urine Negative (Negative); Protein,Urine 1+ (Negative); RBC,Urine 2 /hpf (0-5); Specific Gravity,Urine 1.023 (1.001-1.035); Squamous Epithelial Cell,Urine 3 /hpf (0-4); Urobilinogen,Urine <2.0 mg/dL (<2.0); WBC,Urine 7 /hpf (0-5)
--- NOTE | 2020-04-15 12:31 | ED ---
General Adult HPI - General Chief complaint: Neuro Symptoms/Deficit Stated complaint: AMS/Slur Speach/Shaking/New AFIB Time Seen by Provider: 04/15/20 10:21 Source: patient Mode of arrival: wheelchair Limitations: no limitations - History of Present Illness Initial comments: 64-year-old female presented for multiple complaints. Daughter bedside states p gabino came in for congestion, fatigue and at that time she thought her voice had changed. She was comfortable tested and had lab labs done which revealed no significant acute abnormalities the patient was discharged home. Patient's daughter states that she believes her speech has been slurred for the past 2 weeks and that the patient just seems often confused. She denies any localized weakness she denies any vision changes diplopia nausea vomiting headache neck stiffness. Patient denies any chest pain SOB. Patient daughter states that the patient has been sleeping ~20 hours a day. She states they arent getting answers outpatient and want to make sure nothing else is going on. Pt denies urinary symptoms. Pt glucose not controlled. patient has been eating and drinking less. Covid (-) 04/02. - Related Data Home Medications Medication Instructions Recorded Confirmed Aspirin EC [Ecotrin Low Dose] 81 mg PO DAILY 07/18/17 04/15/20 Canagliflozin [Invokana] 150 mg PO DAILY 07/18/17 04/15/20 Cetirizine HCl [Zyrtec] 10 mg PO HS 07/18/17 04/15/20 Insulin Glargine [Lantus] 80 unit SQ HS 07/18/17 04/15/20 Losartan Potassium [Cozaar] 100 mg PO DAILY 07/18/17 04/15/20 Omeprazole 20 mg PO BID 07/18/17 04/15/20 Triamterene/Hydrochlorothiazid 1 tab PO DAILY 07/18/17 04/15/20 [Triamterene-Hctz 37.5-25 mg Tb] Apixaban [Eliquis] 5 mg PO BID 04/15/20 04/15/20 Atorvastatin [Lipitor] 80 mg PO DAILY 04/15/20 04/15/20 Colchicine 0.6 mg PO DAILY 04/15/20 04/15/20 INSULIN ASPART (NovoLOG) [NovoLOG 20 units SQ AC-TID 04/15/20 04/15/20 (formulary)] INSULIN ASPART (NovoLOG) [NovoLOG See Protocol SQ AC-TID PRN 04/15/20 04/15/20 (formulary)] Levothyroxine Sodium [Synthroid] 75 mcg PO DAILY 04/15/20 04/15/20 Metoprolol Succinate [Toprol XL] 100 mg PO DAILY 04/15/20 04/15/20 Previous Rx's Medication Instructions Recorded Amoxic-Pot Clav 875-125Mg 1 tab PO BID 10 Days #20 tab 04/02/20 [Augmentin 875-125] Allergies Allergy/AdvReac Type Severity Reaction Status Date / Time azithromycin AdvReac Nausea & Verified 04/15/20 11:29 Vomiting Review of Systems ROS Statement: Those systems with pertinent positive or pertinent negative responses have been documented in the HPI. ROS Other: All systems not noted in ROS Statement are negative. Past Medical History Past Medical History: Atrial Fibrillation, Diabetes Mellitus, GERD/Reflux, Hy perlipidemia, Hypertension, Sleep Apnea/CPAP/BIPAP History of Any Multi-Drug Resistant Organisms: None Reported Past Surgical History: Cholecystectomy, Hysterectomy, Tubal Ligation Additional Past Surgical History / Comment(s): D AND c, RECTOCELE, BLADDER SLING Past Anesthesia/Blood Transfusion Reactions: No Reported Reaction Past Psychological History: No Psychological Hx Reported Smoking Status: Never smoker Past Alcohol Use History: Occasional Past Drug Use History: None Reported - Past Family History Father Family Medical History: Coronary Artery Disease (CAD), Hypertension Additional Family Medical History / Comment(s): DM General Exam - General Exam Comments Initial Comments: General: The patient is awake and alert, in no distress Eye: +3 mm pupils are equal, round and reactive to light, extra-ocular movemen ts are intact. No nystagmus. There is normal conjunctiva bilaterally. No signs of icterus. Ears, nose, mouth and throat: There are moist mucous membranes and no oral les ions. Neck: The neck is supple, there is no tenderness or JVD. Cardiovascular: There is a regular rate and rhythm. No murmur, rub or gallop is appreciated. Respiratory: Lungs are clear to auscultation, respirations are non-labored, breath sounds are equal. No wheezes, stridor, rales, or rhonchi. Gastrointestinal: Soft, non-distended, non-tender abdomen without masses or organomegaly noted. There is no rebound or guarding present. Musculoskeletal: Normal ROM, no tenderness. Strength 5/5. Sensation intact. Radial pulses equal bilaterally 2+. Neurological: A&O x 3. CN II-XII intact, memory intact to immediately, intermediate and terminal operations manager recall. Able to follow simple verbal. Able to name common objects. High quality, labial (pa) and lingual (la) speech. Low quality posterior pharynx/larynx (ga) voice sounds. Able to express general knowledge (days in a week). No hemineglect or inattention noted. Finger agnosia (-) and spatially oriented (identified L index finger touched R shoulder with L index finger). Light touch sensation present over the face, chest, abdomen, back, UE bilaterally, and LE bilaterally. Able to localize point during point localization b/l and extinction. No visible bulk atrophy, hypertrophy, fascic ulations, or myoclonus of the UE or LE b/l. Full PROM in UE and LE b/l. Bilateral muscle strength 5/5 for the following muscles: deltoid, biceps, triceps, brachioradialis, wrist extensors/flexor, hip flexor, hip abductors/adductors, hamstrings, quadriceps, feet dorsiflexors/plantar flexors. Finger to nose, finger to the examiners finger, and heel to sy coordinated and accurate b/l. Coordinated and even demonstration of hand flip, heel to sy, finger to nose.. Gait is coordinated and even in stride. (-) Romberg. (-) pronator drift. No nuchal rigidity. Skin: Skin is warm and dry and no rashes or lesions are noted. Psychiatric: Cooperative, appropriate mood & affect, normal judgment. Limitations: no limitations Course Vital Signs 04/15/20 04/15/20 04/15/20 10:12 11:14 12:30 Temperature 98.1 F Pulse Rate 89 82 76 Respiratory 18 18 18 Rate Blood Pressure 97/68 134/54 99/56 O2 Sat by Pulse 99 99 98 Oximetry Medical Decision Making - Medical Decision Making dry appearing 64yo female, hx increased fatigue speech changes. pt does not appear to have slurred speech on exam-nruse does not feel speech slurred either (Kathe) nor tech (Nahed), no other focal deficits. overall does appear fatigued. Patient CT (-). Patient cxr clear. Spoke with Odette Ventura who states he will see patient inpatient. Pt will be admitted for MRI. and further monitoring/hydration. Dr Huynh spoke with Dr Arenas who is agreeable to admission. Ventricular rate 83 bpm, NV interval 162 ms, QRS duration 88 ms, QT/QTC 364/427 ms. - Lab Data Result diagrams: 04/15/20 10:39 04/15/20 10:39 Lab Results 04/15/20 04/15/20 04/15/20 Range/Units 10:39 10:39 10:39 WBC 8.0 (3.8-10.6) k/uL RBC 4.93 (3.80-5.40) m/uL Hgb 13.7 (11.4-16.0) gm/dL Hct 40.1 (34.0-46.0) % MCV 81.4 (80.0-100.0) fL MCH 27.9 (25.0-35.0) pg MCHC 34.3 (31.0-37.0) g/dL RDW 14.6 (11.5-15.5) % Plt Count 375 (150-450) k/uL MPV 7.1 Neutrophils % 77 % Lymphocytes % 11 % Monocytes % 7 % Eosinophils % 3 % Basophils % 1 % Neutrophils # 6.1 (1.3-7.7) k/uL Lymphocytes # 0.9 L (1.0-4.8) k/uL Monocytes # 0.5 (0-1.0) k/uL Eosinophils # 0.3 (0-0.7) k/uL Basophils # 0.1 (0-0.2) k/uL PT 10.8 (9.0-12.0) sec INR 1.0 (<1.2) APTT 24.0 (22.0-30.0) sec Sodium 131 L (137-145) mmol/L Potassium 3.6 (3.5-5.1) mmol/L Chloride 99 (98-107) mmol/L Carbon Dioxide 21 L (22-30) mmol/L Anion Gap 11 mmol/L BUN 19 H (7-17) mg/dL Creatinine 0.82 (0.52-1.04) mg/dL Est GFR (CKD-EPI)AfAm 87 (>60 ml/min/1.73 sqM) Est GFR (CKD-EPI)NonAf 75 (>60 ml/min/1.73 sqM) Glucose 176 H (74-99) mg/dL Lactic Ac Sepsis Rflx Plasma Lactic Acid Pilo (0.7-2.0) mmol/L Calcium 9.9 (8.4-10.2) mg/dL Phosphorus 3.9 (2.5-4.5) mg/dL Magnesium 2.0 (1.6-2.3) mg/dL Total Bilirubin 0.9 (0.2-1.3) mg/dL AST 28 (14-36) U/L ALT 16 (4-34) U/L Alkaline Phosphatase 85 (38-126) U/L Troponin I (0.000-0.034) ng/mL Total Protein 7.2 (6.3-8.2) g/dL Albumin 4.1 (3.5-5.0) g/dL TSH 3.170 (0.465-4.680) mIU/L Urine Color Urine Appearance (Clear) Urine pH (5.0-8.0) Ur Specific [place] (1.001-1.035) Urine Protein (Negative) Urine Glucose (UA) (Negative) Urine Ketones (Negative) Urine Blood (Negative) Urine Nitrite (Negative) Urine Bilirubin (Negative) Urine Urobilinogen (<2.0) mg/dL Ur Leukocyte Esterase (Negative) Urine RBC (0-5) /hpf Urine WBC (0-5) /hpf Ur Squamous Epith Cells (0-4) /hpf Hyaline Casts (0-2) /lpf Urine Mucus (None) /hpf 04/15/20 04/15/20 04/15/20 Range/Units 10:39 10:39 11:14 WBC (3.8-10.6) k/uL RBC (3.80-5.40) m/uL Hgb (11.4-16.0) gm/dL Hct (34.0-46.0) % MCV (80.0-100.0) fL MCH (25.0-35.0) pg MCHC (31.0-37.0) g/dL RDW (11.5-15.5) % Plt Count (150-450) k/uL MPV Neutrophils % % Lymphocytes % % Monocytes % % Eosinophils % % Basophils % % Neutrophils # (1.3-7.7) k/uL Lymphocytes # (1.0-4.8) k/uL Monocytes # (0-1.0) k/uL Eosinophils # (0-0.7) k/uL Basophils # (0-0.2) k/uL PT (9.0-12.0) sec INR (<1.2) APTT (22.0-30.0) sec Sodium (137-145) mmol/L Potassium (3.5-5.1) mmol/L Chloride (98-107) mmol/L Carbon Dioxide (22-30) mmol/L Anion Gap mmol/L BUN (7-17) mg/dL Creatinine (0.52-1.04) mg/dL Est GFR (CKD-EPI)AfAm (>60 ml/min/1.73 sqM) Est GFR (CKD-EPI)NonAf (>60 ml/min/1.73 sqM) Glucose (74-99) mg/dL Lactic Ac Sepsis Rflx Plasma Lactic Acid Pilo 2.3 H* (0.7-2.0) mmol/L Calcium (8.4-10.2) mg/dL Phosphorus (2.5-4.5) mg/dL Magnesium (1.6-2.3) mg/dL Total Bilirubin (0.2-1.3) mg/dL AST (14-36) U/L ALT (4-34) U/L Alkaline Phosphatase (38-126) U/L Troponin I <0.012 (0.000-0.034) ng/mL Total Protein (6.3-8.2) g/dL Albumin (3.5-5.0) g/dL TSH (0.465-4.680) mIU/L Urine Color Yellow Urine Appearance Clear (Clear) Urine pH 6.0 (5.0-8.0) Ur Specific [place] 1.023 (1.001-1.035) Urine Protein 1+ H (Negative) Urine Glucose (UA) 4+ H (Negative) Urine Ketones Negative (Negative) Urine Blood Negative (Negative) Urine Nitrite Negative (Negative) Urine Bilirubin Negative (Negative) Urine Urobilinogen <2.0 (<2.0) mg/dL Ur Leukocyte Esterase Trace H (Negative) Urine RBC 2 (0-5) /hpf Urine WBC 7 H (0-5) /hpf Ur Squamous Epith Cells 3 (0-4) /hpf Hyaline Casts 38 H (0-2) /lpf Urine Mucus Few H (None) /hpf 04/15/20 Range/Units 11:17 WBC (3.8-10.6) k/uL RBC (3.80-5.40) m/uL Hgb (11.4-16.0) gm/dL Hct (34.0-46.0) % MCV (80.0-100.0) fL MCH (25.0-35.0) pg MCHC (31.0-37.0) g/dL RDW (11.5-15.5) % Plt Count (150-450) k/uL MPV Neutrophils % % Lymphocytes % % Monocytes % % Eosinophils % % Basophils % % Neutrophils # (1.3-7.7) k/uL Lymphocytes # (1.0-4.8) k/uL Monocytes # (0-1.0) k/uL Eosinophils # (0-0.7) k/uL Basophils # (0-0.2) k/uL PT (9.0-12.0) sec INR (<1.2) APTT (22.0-30.0) sec Sodium (137-145) mmol/L Potassium (3.5-5.1) mmol/L Chloride (98-107) mmol/L Carbon Dioxide (22-30) mmol/L Anion Gap mmol/L BUN (7-17) mg/dL Creatinine (0.52-1.04) mg/dL Est GFR (CKD-EPI)AfAm (>60 ml/min/1.73 sqM) Est GFR (CKD-EPI)NonAf (>60 ml/min/1.73 sqM) Glucose (74-99) mg/dL Lactic Ac Sepsis Rflx Y Plasma Lactic Acid Pilo (0.7-2.0) mmol/L Calcium (8.4-10.2) mg/dL Phosphorus (2.5-4.5) mg/dL Magnesium (1.6-2.3) mg/dL Total Bilirubin (0.2-1.3) mg/dL AST (14-36) U/L ALT (4-34) U/L Alkaline Phosphatase (38-126) U/L Troponin I (0.000-0.034) ng/mL Total Protein (6.3-8.2) g/dL Albumin (3.5-5.0) g/dL TSH (0.465-4.680) mIU/L Urine Color Urine Appearance (Clear) Urine pH (5.0-8.0) Ur Specific [place] (1.001-1.035) Urine Protein (Negative) Urine Glucose (UA) (Negative) Urine Ketones (Negative) Urine Blood (Negative) Urine Nitrite (Negative) Urine Bilirubin (Negative) Urine Urobilinogen (<2.0) mg/dL Ur Leukocyte Esterase (Negative) Urine RBC (0-5) /hpf Urine WBC (0-5) /hpf Ur Squamous Epith Cells (0-4) /hpf Hyaline Casts (0-2) /lpf Urine Mucus (None) /hpf Disposition Clinical Impression: Confusion, Increased sleeping, Fatigue Disposition: ADMITTED IP TO THIS [facility] Condition: Stable Additional Instructions: . Is patient prescribed a controlled substance at d/c from ED?: No Referrals: Rusty Arenas DO [Primary Care Provider] - 1-2 days Time of Disposition: 13:07 Decision to Admit Reason: Admit from EC Decision Date: 04/15/20 Decision Time: 13:07
[2020-04-15] MEDS ORDERED: NALOXONE 0.4 MG/ML 1 ML VIAL IV PRN (13:04)
[2020-04-15] MEDS ORDERED: ATORVASTATIN 80 MG TAB PO SCH ×2 (15:45→21:00)
--- NOTE | 2020-04-15 15:47 | P.CNNES ---
History of Present Illness Consult date: 04/15/20 Requesting physician: Federica Thakkar Reason for Consult: confusion History of Present Illness: This is a 64-year-old woman with medical history of TIA (10 years ago), recent diagnosis of atrial fibrillation (01/2020), diabetes mellitus (5-6 years), hyperlipidemia, hypertension, sleep apnea on the CPAP machine, bilateral hearing loss that presented to the emergency department on 04/15/2020 for altered mental status, slurring of the speech. According to the patient she's been walking off balance for last 2-4 weeks. She denies of any falls. She is also having some slurring of the speech also in the the last 2-4 weeks that's noticed by her family members. She said that the for the last 4-5 weeks she's been having bilateral hearing loss, she said she initially said it started off with a urine infection and she was on antibiotic by her primary care physician but she doesn't remember the medication as she took it and she was compliant with the medication. Then she came to the hospital and they give her another added bilateral of antibiotic and she has one more week left to go she doesn't recall the name of that antibiotic. As a consequence she feels her hearing has been much decreased and last for 5 weeks. She denies of feeling dizzy or lightheaded that. She denies of having ringing in the ears. She denies off any focal weakness or numbness. She denies denies of any visual disturbance. He denies of any headache, nausea or vomiting. Per the medical record mentioned that the patient's been sleeping more. And that has a decrease in appetite. Denies of any bladder or bowel frequency hesitancy or incontinence. She said that she is on aspirin 81 mg at home as well as she is on Lipitor but she does not know the dose. She was started on Eliquis in the last 1-2 weeks and she's been compliant with the medication. She lives with her . She also has pain at base of neck. Denies difficulty swallowing. Work-up in the hospital consisted of: Initial vital signs is blood pressure of 597/68 with a heart rate of 89, temperature of 98.1 Fahrenheit oral, respiratory rate of 18 and the pulse ox of [address] of the head is reported as age-related atrophic and chronic small vessel ischemic change without acute intracranial process seen at this time. I personally reviewed the CT of the head and I agree with the report. White blood cells 8.0. Lactic acid vein is 2.3. Sodium is 131. Review of Systems Review of system: The 12 point system was reviewed and apparent positive and negative per HPI. Past Medical History Past Medical History: Atrial Fibrillation, Diabetes Mellitus, GERD/Reflux, Hyperlipidemia, Hypertension, Sleep Apnea/CPAP/BIPAP History of Any Multi-Drug Resistant Organisms: None Reported Past Surgical History: Cholecystectomy, Hysterectomy, Tubal Ligation Additional Past Surgical History / Comment(s): D AND c, RECTOCELE, BLADDER SLING Past Anesthesia/Blood Transfusion Reactions: No Reported Reaction Past Psychological History: No Psychological Hx Reported Smoking Status: Never smoker Past Alcohol Use History: Occasional Past Drug Use History: None Reported - Past Family History Father Family Medical History: Coronary Artery Disease (CAD), Hypertension Additional Family Medical History / Comment(s): DM Medications and Allergies Home Medications Medication Instructions Recorded Confirmed Type Aspirin EC [Ecotrin Low Dose] 81 mg PO DAILY 07/18/17 04/15/20 History Canagliflozin [Invokana] 150 mg PO DAILY 07/18/17 04/15/20 History Cetirizine HCl [Zyrtec] 10 mg PO HS 07/18/17 04/15/20 History Insulin Glargine [Lantus] 80 unit SQ HS 07/18/17 04/15/20 History Losartan Potassium [Cozaar] 100 mg PO DAILY 07/18/17 04/15/20 History Omeprazole 20 mg PO BID 07/18/17 04/15/20 History Triamterene/Hydrochlorothiazid 1 tab PO DAILY 07/18/17 04/15/20 History [Triamterene-Hctz 37.5-25 mg Tb] Amoxic-Pot Clav 875-125Mg 1 tab PO BID 10 Days #20 tab 04/02/20 04/15/20 Rx [Augmentin 875-125] Apixaban [Eliquis] 5 mg PO BID 04/15/20 04/15/20 History Atorvastatin [Lipitor] 80 mg PO DAILY 04/15/20 04/15/20 History Colchicine 0.6 mg PO DAILY 04/15/20 04/15/20 History INSULIN ASPART (NovoLOG) [NovoLOG 20 units SQ AC-TID 04/15/20 04/15/20 History (formulary)] INSULIN ASPART (NovoLOG) [NovoLOG See Protocol SQ AC-TID PRN 04/15/20 04/15/20 History (formulary)] Levothyroxine Sodium [Synthroid] 75 mcg PO DAILY 04/15/20 04/15/20 History Metoprolol Succinate [Toprol XL] 100 mg PO DAILY 04/15/20 04/15/20 History Allergies Allergy/AdvReac Type Severity Reaction Status Date / Time azithromycin AdvReac Nausea & Verified 04/15/20 11:29 Vomiting Physical Examination - Vital Signs Vital Signs: Vital Signs Temp Pulse Resp BP Pulse Ox 04/15/20 13:30 71 18 97/64 99 04/15/20 12:30 76 18 99/56 98 04/15/20 11:14 82 18 134/54 99 04/15/20 10:12 98.1 F 89 18 97/68 99 Intake and Output 04/14/20 04/15/20 04/15/20 22:59 06:59 14:59 Other: Weight 108.862 kg GENERAL: The patient is lying in bed and is not in acute distress. CHEST: The heart rate is regular rate rhythm. No murmurs to auscultation. No carotid bruit bilaterally. LUNG: Clear to auscultation bilaterally no wheezing noted throughout. Not labored breathing. ABDOMEN/GI: Bowel sounds present in all 4 quadrants. No tenderness to palpation throughout. NEUROLOGICAL: Higher mental function: The patient is awake, alert, oriented to self, place and time. Patient was able to identify objects such as a pen, watch and phone c orrectly. Patient is following commands. No aphasia and no neglect. Cranial nerves: The pupils are round, equal and reactive to light and accommodation. Visual lorenzana are full to confrontation throughout. Extraocular movement is intact no nystagmus is noted. Facial sensation is normal to touch throughout. The facial strength is normal throughout. Hearing is decrease bilaterally to hand rub. Tongue is midline and moved [id number] without any difficulty. No dysarthria is noted. Shoulder shrug is normal bilaterally. Motor: Gait is normal. The strength is 5 over 5 throughout. Normal tone and bulk. Cerebellum: Normal finger to nose bilaterally. Sensation: Sensation is normal to touch throughout. Reflexes (right/left): 2+ throughout except ankles are 1+ bilaterally. Plantars are downgoing bilaterally. Results Ammonia level is less than 9. TSH is 3.170 which is normal. Glucose is 176. AST of 28, ALT of 16. Coagulation study: PT of 10.8, INR 1.0 and PTT of 24.0. Urinalysis is nitrate was negative, leukocyte esterase is trace urine white blood cell is 7. - Laboratory Findings CBC and BMP: 04/15/20 10:39 04/15/20 10:39 Abnormal Lab Findings: Abnormal Labs 04/15/20 04/15/20 04/15/20 10:39 10:39 10:39 Lymphocytes # 0.9 L Sodium 131 L Carbon Dioxide 21 L BUN 19 H Glucose 176 H Plasma Lactic Acid Pilo 2.3 H* Urine Protein Urine Glucose (UA) Ur Leukocyte Esterase Urine WBC Hyaline Casts Urine Mucus 04/15/20 11:14 Lymphocytes # Sodium Carbon Dioxide BUN Glucose Plasma Lactic Acid Pilo Urine Protein 1+ H Urine Glucose (UA) 4+ H Ur Leukocyte Esterase Trace H Urine WBC 7 H Hyaline Casts 38 H Urine Mucus Few H Assessment and Plan Assessment: This is a 64-year-old woman that presented to the emergency department on 04/15/2020 who is accompanied by her daughter for multiple complaints, slurring of the speech and unsteady walking for 2-4 weeks, bilateral hearing loss after bilateral ear infection in 4-5 weeks, decrease appetite and more sleepy. Unsteady gait, slurring the speech. Unknown exact etiology. But will rule out stroke. Neck pain at the base Atrial fibrillation Bilateral hearing loss for last for 5 weeks since the bilateral ear infection diabetes mellitus hyperlipidemia hypertension sleep apnea on the CPAP machine Plan: I ordered MRI of the brain as well as MRI of the C-spine. I ordered the MRI the brain to rule out any stroke and/or any pathological etiology to explain her symptoms as well as her hearing loss. MRI of the C-spine is ordered because the patient was having neck pain and unsteady walk-in. I ordered the carotid duplex. Continue aspirin 81 mg home dose lipitor 80mg daily. I feel it Lipitor 80 mg is a high dose and I would recommend decreasing it to 40 mg but will defer to primary team or cardiology to modify medication. Ordered 2-D echo. Ordered vitamin B12 and folate. Also ordered HbA1c. Lipid profile triglycerides 106, cholesterol 138, LDL is 80 and HDL is 36 and that this was done on 03/08/2020 there is no need to repeat it. 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 I recommend ENT consult regarding the patient's hearing loss. If everything is negative then possibly can have peripheral neuropathy that can cause patient unsteady gait. Resumed Eliquis 5 mg twice a day for atrial fibrillation. Thank you for the consult. Maykel Mao M.D. Neuro-hospitalist Time with Patient: Greater than 30
--- NOTE | 2020-04-15 16:34 | US ---
EXAMINATION TYPE: US carotid duplex BILAT DATE OF EXAM: 04/15/2020 COMPARISON: NONE CLINICAL HISTORY: 64-year-old female stroke. TIA TECHNIQUE: Carotid duplex ultrasound examination. Indirect Doppler criteria was utilized. FINDINGS: EXAM MEASUREMENTS: RIGHT: Peak Systolic Velocity (PSV) cm/sec ----- Right CCA: 76.9 ----- Right ICA: 53.7 ----- Right ECA: 49.3 ICA/CCA ratio: 0.7 RIGHT: End Diastole cm/sec ----- Right CCA: 21.7 ----- Right ICA: 18.8 ----- Right ECA: 14.4 LEFT: Peak Systolic Velocity (PSV) cm/sec ----- Left CCA: 104.8 ----- Left ICA: 85.4 ----- Left ECA: 77.4 ICA/CCA ratio: 0.8 LEFT: End Diastole cm/sec ----- Left CCA: 25.7 ----- Left ICA: 25.7 ----- Left ECA: 6.6 VERTEBRALS (direction of flow): Right Vertebral: Antegrade Left Vertebral: Antegrade Rhythm: Normal Plant Etiologist notes: No significant stenosis seen Mild atherosclerotic change at the right bifurcation. IMPRESSION: No hemodynamically significant internal carotid artery stenosis on either side. Criteria for Assigning % of Stenosis / Diameter reduction (Estimation based on the indirect measurements of the internal carotid artery velocities (ICA PSV). 1. Normal (no stenosis)=ICA PSV < 125 cm/s: ratio < 2.0: ICA EDV<40 cm/s. 2. Less than 50% stenosis=ICA PSV < 125 cm/s: ratio < 2.0: ICA EDV<40 cm/s. 3. 50 to 69% stenosis=ICA PSV of 125 to 230 cm/s: ration 2.0 ? 4.0: ICA EDV 40-100 cm/s. 4. Greater than 70% stenosis to near occlusion= ICA PSV > 230 cm/s: ratio > 4.0: ICA EDV > 100 cm/s. 5. Near occlusion= ICA PSV velocities may be low or undetectable: variable ratio and ICA EDV. 6. Total occlusion=unable to detect flow.
[2020-04-15] MEDS ORDERED: LORATADINE 10 MG TAB PO SCH (21:00)
[2020-04-15] MEDS: APIXABAN 5 MG TAB PO SCH (22:21)
--- NOTE | 2020-04-15 22:48 | MR ---
EXAMINATION TYPE: MR brain/cspine wo DATE OF EXAM: 04/15/2020 COMPARISON: CT brain earlier today. HISTORY: stroke: slurring speech, unsteady gait, hearing TECHNIQUE: Multiplanar, multisequence imaging of the brain and brainstem and cervical spine are all p erformed without IV contrast. FINDINGS: BRAIN: Diffusion weighted images demonstrate no evidence of a recent infarct or other diffusion abnormality. There is no worrisome extra-axial fluid collection. Mild ventricular and sulcal prominence. Mild T2 h yperintensity in the periventricular white matter for reference right frontal lobe axial image 19. Midline structures demonstrate normal morphology. The craniocervical junction appears within normal limits. Normal vascular flow voids are present. The dominant left vertebral artery incidentally noted . Mild mucosal thickening inferior right maxillary sinus otherwise the paranasal sinuses are clear. IMPRESSION: 1. No MRI evidence for a recent infarct. 2. Background mild diffuse cerebral atrophy and mild to minimal chronic small vessel ischemic change along with mild inferior chronic right maxillary sinusitis. MRI CERVICAL SPINE: FINDINGS: Coronal images show dextroconvex scoliotic curvature centered upper to mid thoracic spine. Sagittal images of the cervical spine show the craniocervical junction to appear within normal limits . The cervical and upper thoracic spinal cord is normal in course, caliber, and signal. Vertebral a lignment is satisfactory appearance sagittal images. Mild disc space narrowing at C5-C6 level otherwi se the vertebral body and intravertebral disk heights are normal. The bone marrow signal intensity shows some heterogeneity with some Modic type I and 2 changes in the mid to lower cervical spine. Sma ll posterior disc herniations mildly effaces the anterior thecal sac at T3-T4 and T4-T5 levels on sag ittal image 10. Axial images show at C2-C3 and C3-C4 levels to appear within normal limits. Axial images at C4-C5 level show left-sided uncovertebral facet degenerative changes with broad-based right spur disc complex minimally effacing anterior thecal sac, there is asymmetric mild left-sided neural foraminal narrowing. Axial images at C5-C6 level shows focal right paracentral disc protrusion effaces the anterior thecal sac on axial image 22 with uncovertebral facet degenerative changes causing mild right-sided neural foraminal narrowing. Axial images at C6-C7 level show uncovertebral facet degenerative changes and mild posterior spur dis c complex minimally effacing anterior thecal sac with mild bilateral neural foraminal narrowing. Axial images at C7-T1 level are within normal limits. IMPRESSION: Slight scoliotic curvature with mild multilevel degenerative changes in the mid to lower cervical spine as detailed above.
[2020-04-16 06:18] LABS: Glucose,Whole Blood 97 mg/dL (75-99)
[2020-04-16] MEDS ORDERED: LEVOTHYROXINE 75 MCG TAB PO SCH (06:30)
[2020-04-16] MEDS ORDERED: INSULIN ASPART (NovoLOG) 100 UNIT/ML VIAL SQ SCH (07:30)
[2020-04-16 08:15] VITALS: BP 116/75; PULSE 68; RESP 16; TEMP 98.3
[2020-04-16] MEDS ORDERED: AMOXIC-POT CLAV 875-125MG 1 EACH TAB PO SCH (09:00)
[2020-04-16] MEDS ORDERED: TRIAMTERENE-HCTZ 37.5-25MG 1 EACH TAB PO SCH (09:00)
[2020-04-16] MEDS ORDERED: APIXABAN 5 MG TAB PO SCH (09:00)
[2020-04-16] MEDS ORDERED: ASPIRIN 81 MG PO SCH ×2 (09:00)
[2020-04-16] MEDS ORDERED: NON FORMULARY DRUG (Canagliflozin [Invokana] 100 MG Tablet) PO SCH (09:00)
[2020-04-16] MEDS ORDERED: LOSARTAN 50 MG TAB PO SCH (09:00)
[2020-04-16] MEDS ORDERED: COLCHICINE 0.6 MG EACH PO SCH (09:00)
[2020-04-16] MEDS ORDERED: PANTOPRAZOLE 40 MG TABLET PO SCH (09:00)
[2020-04-16] MEDS ORDERED: ATORVASTATIN 80 MG TAB PO SCH (09:00)
[2020-04-16] MEDS ORDERED: METOPROLOL SUCCINATE (ER) 100 MG TAB.ER.24H PO SCH (09:00)
[2020-04-16] MEDS: APIXABAN 5 MG TAB PO SCH (09:17)
--- NOTE | 2020-04-16 09:28 | P.HPIM ---
History of Present Illness H&P Date: 04/16/20 Chief Complaint: "Head pressure", gait is History and Physical and Discharge Summary This is 64-year-old female with multiple medical problems presented with general ized head pressure, confusion, mild gait disturbance. Patient was seen by PCP last week, and now 3, hyponatremic. She been placed on Gatorade, fluid restrictions and to continue on Augmentin that was prescribed initially on April 02 in the ER. Evaluated by neurology. Neuro workup of brain/cervical MRI, CT, carotids completed with reported negative findings, no hemodynamic significant carotid stenosis. Chronic mild inferior right maxillary sinusitis. Mild multilevel degenerative changes in the mid to lower cervical spine .Chest x-ray reported no evidence for acute pulmonary disease. EKG and plan normal sinus rhythm, nonspecific T-wave abnormality. Troponin negative 1 .Evaluated by cardiology, echo completed, results pending. Hematology unremarkable Recent sodium 131, BUN 19, creatinine 0.82, potassium 3.6, magnesium 2, labs pending. On admission borderline hypotensive ,lactic acid 2.3, resolved with IV fluid hydration. Afebrile, normal WBC. UA reported hyaline casts 38, urine WBC 7, trace leukocytes, negative nitrates and negative ketones 4+ glucose 1+ urine protein. Blood sugar 176 on admission. Denies chest pain, palpitations or shortness of breath.VSS, maintaining O2 sats of high 90s on room air. Denies lightheadedness, dizziness or focal deficits. During assessment patient is alert and oriented 3, with no slurred speech. PT evaluation pending. Review of Systems ROS Statement: Those systems with pertinent positive or pertinent negative responses have been documented in the HPI. ROS Other: All systems not noted in ROS Statement are negative. Past Medical History Past Medical History: Atrial Fibrillation, Diabetes Mellitus, GERD/Reflux, Hyperlipidemia, Hypertension, Sleep Apnea/CPAP/BIPAP History of Any Multi-Drug Resistant Organisms: None Reported Past Surgical History: Cholecystectomy, Hysterectomy, Tubal Ligation Additional Past Surgical History / Comment(s): D AND c, RECTOCELE, BLADDER SLING Past Anesthesia/Blood Transfusion Reactions: No Reported Reaction Past Psychological History: No Psychological Hx Reported Smoking Status: Never smoker Past Alcohol Use History: Occasional Past Drug Use History: None Reported - Past Family History Father Family Medical History: Coronary Artery Disease (CAD), Hypertension Additional Family Medical History / Comment(s): DM Medications and Allergies Home Medications Medication Instructions Recorded Confirmed Type Aspirin EC [Ecotrin Low Dose] 81 mg PO DAILY 07/18/17 04/15/20 History Canagliflozin [Invokana] 150 mg PO DAILY 07/18/17 04/15/20 History Cetirizine HCl [Zyrtec] 10 mg PO HS 07/18/17 04/15/20 History Insulin Glargine [Lantus] 80 unit SQ HS 07/18/17 04/15/20 History Losartan Potassium [Cozaar] 100 mg PO DAILY 07/18/17 04/15/20 History Omeprazole 20 mg PO BID 07/18/17 04/15/20 History Apixaban [Eliquis] 5 mg PO BID 04/15/20 04/15/20 History Atorvastatin [Lipitor] 80 mg PO DAILY 04/15/20 04/15/20 History Colchicine 0.6 mg PO DAILY 04/15/20 04/15/20 History INSULIN ASPART (NovoLOG) [NovoLOG 20 units SQ AC-TID 04/15/20 04/15/20 History (formulary)] INSULIN ASPART (NovoLOG) [NovoLOG See Protocol SQ AC-TID PRN 04/15/20 04/15/20 History (formulary)] Levothyroxine Sodium [Synthroid] 75 mcg PO DAILY 04/15/20 04/15/20 History Metoprolol Succinate [Toprol XL] 100 mg PO DAILY 04/15/20 04/15/20 History Atorvastatin [Lipitor] 80 mg PO HS #30 tab 04/16/20 Rx Cefuroxime Axetil [Ceftin] 500 mg PO BID 1 Days #20 tab 04/16/20 Rx Allergies Allergy/AdvReac Type Severity Reaction Status Date / Time azithromycin AdvReac Nausea & Verified 04/15/20 11:29 Vomiting Physical Exam Vitals: Vital Signs Temp Pulse Pulse Resp BP BP Pulse Ox 04/16/20 08:13 98.3 F 68 16 116/75 97 04/16/20 03:00 98.2 F 72 20 96/61 97 04/15/20 21:00 97.8 F 72 20 100/59 97 04/15/20 15:00 65 16 04/15/20 13:53 97.5 F L 65 16 97/61 98 11/23/20 13:30 71 18 97/64 99 04/15/20 12:30 76 18 99/56 98 04/15/20 11:14 82 18 134/54 99 04/15/20 10:12 98.1 F 89 18 97/68 99 Intake and Output 04/15/20 04/16/20 04/16/20 22:59 06:59 14:59 Other: Voiding Method Toilet Toilet # Voids 2 1 PHYSICAL EXAM: VITAL SIGNS: As above GENERAL: Sitting up in bed, no acute distress HEENT: Conjunctivae normal. eyes normal. Oral mucosa moist NECK: No JVD. No thyroid enlargement. No LNs CARDIOVASCULAR: S1, S2 regular.. No murmur RESPIRATION: Breath sounds diminished in the bases. No rhonchi or crackles. No bronchial breathing. ABDOMEN: Soft, nontender . No guarding. no masses palpable. No ascites, No hepatosplenomegaly.Bowel sounds heard. LEGS: No edema. no swelling PSYCHIATRY: Alert and oriented X3, mood and affect normal. NERVOUS SYSTEM: Cranial N 2-12 grossly normal. Moves all 4 limbs. No focal deficits. Strength and sensation grossly intact.. Skin: Warm and dry, no rash Lymphatic system. No LN neck axilla. Results CBC & Chem 7: 04/15/20 10:39 04/15/20 10:39 Labs: Abnormal Lab Results - Last 24 Hours (Table) 04/15/20 04/15/20 04/15/20 Range/Units 10:39 10:39 10:39 Lymphocytes # 0.9 L (1.0-4.8) k/uL Sodium 131 L (137-145) mmol/L Carbon Dioxide 21 L (22-30) mmol/L BUN 19 H (7-17) mg/dL Glucose 176 H (74-99) mg/dL Plasma Lactic Acid Pilo 2.3 H* (0.7-2.0) mmol/L Urine Protein (Negative) Urine Glucose (UA) (Negative) Ur Leukocyte Esterase (Negative) Urine WBC (0-5) /hpf Hyaline Casts (0-2) /lpf Urine Mucus (None) /hpf 04/15/20 Range/Units 11:14 Lymphocytes # (1.0-4.8) k/uL Sodium (137-145) mmol/L Carbon Dioxide (22-30) mmol/L BUN (7-17) mg/dL Glucose (74-99) mg/dL Plasma Lactic Acid Pilo (0.7-2.0) mmol/L Urine Protein 1+ H (Negative) Urine Glucose (UA) 4+ H (Negative) Ur Leukocyte Esterase Trace H (Negative) Urine WBC 7 H (0-5) /hpf Hyaline Casts 38 H (0-2) /lpf Urine Mucus Few H (None) /hpf Thrombosis Risk Factor Assmnt - Choose All That Apply Any of the Below Risk Factors Present?: Yes Each Factor Represents 1 point: Obesity (BMI >25) Each Risk Factor Represents 2 Points: Age 61-74 years Thrombosis Risk Factor Assessment Total Risk Factor Score: 3 Thrombosis Risk Factor Assessment Level: Moderate Risk Assessment and Plan Assessment: Head pressure, reported slurred speech, none presently, gait dysfunction, MRI reported negative for CVA, possible TIA. MRI reports chronic sinusitis. Chronic paroximal atrial fibrillation Bilateral hearing loss for approximately 5 weeks since last ear infection, outpatient ENT recommended History of hypertension, borderline hypotension currently Hyperlipidemia Diabetes mellitus type 2, hyperglycemia, A1c pending Obstructive sleep apnea Obesity, BMI Plan: Continue on current medication regime ,monitoring and symptomatic treatment. Current labs pending. Maxide placed on hold. Patient will be d ischarged home today in a stable condition with guarded prognosis, pending PT evaluation/recommendations, final DC recommendations and clearance from both neurology and cardiology. Patient has been advised to follow-up with ENT outpatient. Antibiotics adjusted. The impression and plan of care has been dictated as directed. : I performed a history and examination of this patient, discussed the same with the dictator. I agree with the dictator's note ,documented as a scribe. Any additional findings or plans will be noted.
--- NOTE | 2020-04-16 10:34 | P.CRDCN ---
History of Present Illness Consult date: 04/16/20 Chief complaint: Confusion, head fullness History of present illness: This is a 64-year-old female who follows with Dr. Ventura in the [facility]. He actually last seen her in the office on April 05, just prior to that she was in the hospital emergency room because of slurring of speech. She was found in the emergency room at that time to have a temperature greater than 102 and subsequently 101.5 she was diagnosed at that time with bronchitis and given oral antibiotics. Her EKG on that visit showed a sinus tachycardia with a heart rate of 125 and her CRP was elevated. She was seen by Dr. Ventura in the office, she had been complaining of being very short of breath with minimal exertion, she had a follow-up 24-hour Holter monitor which showed paroxysmal atrial fibrillation with rapid ventricular response and her echo showed normal LV function with small circumferential pericardial effusion with thickened pericardium consistent with post viral pericarditis. 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 She's also on Eliquis 5 mg one tablet by mouth twice a day for anticoagulation. The patient does have a documented history of diabetes, hypertension, hyperlipidemia, family history of premature coronary artery disease. She also underwent a cardiac catheterization in 2008 which revealed normal coronary arteries. Most recent Blanca scan stress test was preformed on the fourth of this month which was negative for any reversible ischemia. She presented to the hospital on this occasion with symptoms of a fullness sensation in her head, and mild change in her speech pattern. She denies any recent fever or chills at home. Denies any palpitations, no chest discomfort. Her breathing is overall stable. Her CAT scan of the brain showed chronic small vessel ischemia with no acute change. Chest x-ray did not reveal any evidence for acute disease. Her EKG normal sinus rhythm with no acute changes. Carotid Doppler study did not reveal any hemodynamically significant stenosis. An MRI of the brain was performed which did not reveal any recent infarct. White blood cell count 8.0, hemoglobin 13.7, platelet count 375. Sodium 131, potassium 3.6, BUN 19, creatinine 0.8. Her lactic acid on admission was 1.5, 2.3 was her subsequent lactic acid. Blood pressure 96/60, heart rate in the 70s, 97% on room air. Past Medical History Past Medical History: Atrial Fibrillation, Diabetes Mellitus, GERD/Reflux, Hyperlipidemia, Hypertension, Sleep Apnea/CPAP/BIPAP History of Any Multi-Drug Resistant Organisms: None Reported Past Surgical History: Cholecystectomy, Hysterectomy, Tubal Ligation Additional Past Surgical History / Comment(s): D AND c, RECTOCELE, BLADDER SLING Past Anesthesia/Blood Transfusion Reactions: No Reported Reaction Past Psychological History: No Psychological Hx Reported Smoking Status: Never smoker Past Alcohol Use History: Occasional Past Drug Use History: None Reported - Past Family History Father Family Medical History: Coronary Artery Disease (CAD), Hypertension Additional Family Medical History / Comment(s): DM Medications and Allergies Home Medications Medication Instructions Recorded Confirmed Type Aspirin EC [Ecotrin Low Dose] 81 mg PO DAILY 07/18/17 04/15/20 History Canagliflozin [Invokana] 150 mg PO DAILY 07/18/17 04/15/20 History Cetirizine HCl [Zyrtec] 10 mg PO HS 07/18/17 04/15/20 History Insulin Glargine [Lantus] 80 unit SQ HS 07/18/17 04/15/20 History Losartan Potassium [Cozaar] 100 mg PO DAILY 07/18/17 04/15/20 History Omeprazole 20 mg PO BID 07/18/17 04/15/20 History Apixaban [Eliquis] 5 mg PO BID 04/15/20 04/15/20 History Atorvastatin [Lipitor] 80 mg PO DAILY 04/15/20 04/15/20 History Colchicine 0.6 mg PO DAILY 04/15/20 04/15/20 History INSULIN ASPART (NovoLOG) [NovoLOG 20 units SQ AC-TID 04/15/20 04/15/20 History (formulary)] INSULIN ASPART (NovoLOG) [NovoLOG See Protocol SQ AC-TID PRN 04/15/20 04/15/20 History (formulary)] Levothyroxine Sodium [Synthroid] 75 mcg PO DAILY 04/15/20 04/15/20 History Metoprolol Succinate [Toprol XL] 100 mg PO DAILY 04/15/20 04/15/20 History Atorvastatin [Lipitor] 80 mg PO HS #30 tab 04/16/20 Rx Cefuroxime Axetil [Ceftin] 500 mg PO BID 1 Days #20 tab 04/16/20 Rx Allergies Allergy/AdvReac Type Severity Reaction Status Date / Time azithromycin AdvReac Nausea & Verified 04/15/20 11:29 Vomiting Physical Exam Vitals: Vital Signs Temp Pulse Pulse Resp BP BP Pulse Ox 04/16/20 08:13 98.3 F 68 16 116/75 97 04/16/20 03:00 98.2 F 72 20 96/61 97 04/15/20 21:00 97.8 F 72 20 100/59 97 04/15/20 15:00 65 16 04/15/20 13:53 97.5 F L 65 16 97/61 98 04/15/20 13:30 71 18 97/64 99 04/15/20 12:30 76 18 99/56 98 04/15/20 11:14 82 18 134/54 99 Intake and Output 04/15/20 04/16/20 04/16/20 22:59 06:59 14:59 Other: Voiding Method Toilet Toilet Toilet # Voids 2 1 PHYSICAL EXAMINATION: GENERAL: 65-year-old female in no acute distress at the time of my examination HEENT: Head is atraumatic, normocephalic. Pupils equal, round. Sclera anicteric. Conjunctiva are clear. Mucous membranes of the mouth are moist. Neck is supple. There is no elevated jugular venous pressure. No carotid] bruit is heard. HEART EXAMINATION: Heart S1, S2 normal. No murmur or gallop heard. CHEST EXAMINATION: Lungs are clear to auscultation and precussion. No chest wall tenderness is noted on palpation or with deep breathing. ABDOMEN: Soft, nontender. Bowel sounds are heard. No organomegaly noted. EXTREMITIES: 2+ peripheral pulses with no evidence of peripheral edema and no calf tenderness noted. NEUROLOGIC patient is awake, alert and oriented 3 . Results 04/15/20 10:39 04/15/20 10:39 Cardiac Enzymes 04/15/20 04/15/20 Range/Units 10:39 10:39 AST 28 (14-36) U/L Troponin I <0.012 (0.000-0.034) ng/mL Coagulation 04/15/20 Range/Units 10:39 PT 10.8 (9.0-12.0) sec APTT 24.0 (22.0-30.0) sec CBC 04/15/20 Range/Units 10:39 WBC 8.0 (3.8-10.6) k/uL RBC 4.93 (3.80-5.40) m/uL Hgb 13.7 (11.4-16.0) gm/dL Hct 40.1 (34.0-46.0) % Plt Count 375 (150-450) k/uL Comprehensive Metabolic Panel 04/15/20 Range/Units 10:39 Sodium 131 L (137-145) mmol/L Potassium 3.6 (3.5-5.1) mmol/L Chloride 99 (98-107) mmol/L Carbon Dioxide 21 L (22-30) mmol/L BUN 19 H (7-17) mg/dL Creatinine 0.82 (0.52-1.04) mg/dL Glucose 176 H (74-99) mg/dL Calcium 9.9 (8.4-10.2) mg/dL AST 28 (14-36) U/L ALT 16 (4-34) U/L Alkaline Phosphatase 85 (38-126) U/L Total Protein 7.2 (6.3-8.2) g/dL Albumin 4.1 (3.5-5.0) g/dL Current Medications Generic Name Dose Route Start Last Admin Trade Name Freq PRN Reason Stop Dose Admin Amoxicillin/Clavulanate Potassium 1 each 04/16/20 09:00 04/16/20 09:18 Amoxic-Pot Clav 875-125mg 1 Each Tab PO 1 each BID MALCOLM Administration Apixaban 5 mg 04/15/20 21:00 04/16/20 09:17 Apixaban 5 Mg Tab PO 5 mg BID MALCOLM Administration Apixaban 5 mg 04/16/20 09:00 04/16/20 09:17 Apixaban 5 Mg Tab PO Not Given BID MALCOLM Aspirin 81 mg 04/16/20 09:00 04/16/20 09:17 Aspirin 81 Mg PO 81 mg DAILY MALCOLM Administration Aspirin 81 mg 04/16/20 09:00 04/16/20 09:19 Aspirin 81 Mg PO Not Given DAILY MALCOLM Atorvastatin Calcium 80 mg 04/15/20 21:00 04/15/20 22:21 Atorvastatin 80 Mg Tab PO 80 mg HS MALCOLM Administration Atorvastatin Calcium 80 mg 04/16/20 09:00 04/16/20 09:18 Atorvastatin 80 Mg Tab PO 80 mg DAILY MALCOLM Administration Colchicine 0.6 mg 04/16/20 09:00 04/16/20 09:18 Colchicine 0.6 Mg Each PO 0.6 mg DAILY MALCOLM Administration Insulin Aspart 20 unit 04/16/20 07:30 04/16/20 08:16 Insulin Aspart (Novolog) 100 Unit/Ml Vial SQ Not Given AC-TID MALCOLM Insulin Detemir 80 unit 04/16/20 21:00 Insulin Detemir (Levemir) 100 Unit/Ml Syr SQ HS MALCOLM Levothyroxine Sodium 75 mcg 04/16/20 06:30 04/16/20 06:13 Levothyroxine 75 Mcg Tab PO 75 mcg DAILY@0630 MALCOLM Administration Loratadine 10 mg 04/15/20 21:00 04/15/20 22:21 Loratadine 10 Mg Tab PO 10 mg HS MALCOLM Administration Losartan Potassium 100 mg 04/16/20 09:00 04/16/20 09:18 Losartan 50 Mg Tab PO 100 mg DAILY MALCOLM Administration Metoprolol Succinate 100 mg 04/16/20 09:00 04/16/20 09:18 Metoprolol Succinate (Er) 100 Mg Tab.Er.24h PO 100 mg DAILY MALCOLM Administration Naloxone HCl 0.2 mg 04/15/20 13:04 Naloxone 0.4 Mg/Ml 1 Ml Vial IV Q2M PRN Opioid Reversal Non-Formulary Medication 150 mg 04/16/20 09:00 04/16/20 09:18 Canagliflozin [Invokana] PO Not Given DAILY MALCOLM Pantoprazole Sodium 40 mg 04/16/20 09:00 04/16/20 09:17 Pantoprazole 40 Mg Tablet PO 40 mg BID MALCOLM Administration Intake and Output 04/15/20 04/16/20 04/16/20 22:59 06:59 14:59 Other: Voiding Method Toilet Toilet Toilet # Voids 2 1 04/15/20 10:39 04/15/20 10:39 EKG Interpretations (text) EKG shows normal sinus rhythm with no acute changes. Assessment and Plan Plan: Assessment and plan #1 the symptoms of head fullness, generalized malaise. Could be persistent generalized symptoms from her recent viral syndrome. #2 paroxysmal atrial fibrillation on Eliquis for anticoagulation #3 hypertension #4 hyperlipidemia #5 diabetes #6 sleep apnea #7 GERD #8 recent viral syndrome with subsequent pericarditis Plan Patient just recently had a Lexiscan stress test performed earlier this month which was negative for any reversible ischemia. She also had an echocardiogram with Doppler study performed which revealed a normal left ventricular systolic function. She is remaining in normal sinus rhythm at this time. Hemodynamicall y she stable. From cardiology's perspective, she should be able to be discharged home to follow-up with Dr. Ventura in the office post discharge. DNP note has been reviewed, I agree with a documented findings and plan of care. Patient was seen and examined.
--- NOTE | 2020-04-16 10:45 | ECHOF ---
Referral Reason:stroke MEASUREMENTS -------- HEIGHT: 160.0 cm WEIGHT: 108.9 kg BP: 96/61 IVSd: 1.3 cm (0.6 - 1.1) LVIDd: 3.8 cm (3.9 - 5.3) LVPWd: 1.3 cm (0.6 - 1.1) EDV(Teich): 63 ml IVSs: 1.8 cm LVIDs: 2.5 cm LVPWs: 1.7 cm %IVS Thck: 45 % ESV(Teich): 22 ml EF(Teich): 66 % %FS: 36 % SV(Teich): 42 ml LA Diam: 3.7 cm (2.7 - 3.8) RVIDd: 3.1 cm (< 3.3) LALs A4C: 5.6 cm LAAs A4C: 19.0 cm LAESV A-L A4C: 55 ml LAESV MOD A4C: 47 ml LALs A2C: 5.4 cm LAAs A2C: 15.8 cm LAESV A-L A2C: 39 ml LAESV MOD A2C: 38 ml LAESV(A-L): 47 ml LAESV Index (A-L): 22.50 ml/m Ao Diam: 2.8 cm (2.0 - 3.7) AV Cusp: 2.2 cm (1.5 - 2.6) EPSS: 0.6 cm MV E Paddy: 0.84 m/s MV DecT: 255 ms MV Dec Daniels: 3.3 m/s MV A Paddy: 1.00 m/s MV E/A Ratio: 0.84 MV PHT: 74 ms AV Vmax: 1.73 m/s AV maxP.04 mmHg TR Vmax: 1.99 m/s TR maxP.85 mmHg RAP: 5.00 mmHg RVSP: 20.85 mmHg MV EF SLOPE: 63.24 mm/s (70 - 150) MV EXCURSION: 13.78 mm (> 18.000) FINDINGS -------- Sinus rhythm. This was a technically adequate study. The left ventricular size is normal. There is mild concentric left ventricular hypertrophy. Overa ll left ventricular systolic function is normal with, an EF between 60 - 65 %. The right ventricle is normal in size. Normal LA size by volume 22+/-6 ml/m2. The right atrium is normal in size. Lipomatous Hypertrophy of the atrial septum is present There is mild aortic valve sclerosis. The mitral valve is normal. Mild tricuspid regurgitation present. Right ventricular systolic pressure is normal at < 35 mmHg. Trace/mild (physiologic) pulmonic regurgitation. The aortic root size is normal. IVC Not well visulized. There is no pericardial effusion. CONCLUSIONS -------- 1. The left ventricular size is normal. 2. There is mild concentric left ventricular hypertrophy. 3. Overall left ventricular systolic function is normal with, an EF between 60 - 65 %. 4. Lipomatous Hypertrophy of the atrial septum is present 5. Mild tricuspid regurgitation present. 6. Trace/mild (physiologic) pulmonic regurgitation. 7. There is no pericardial effusion. FAN INSTALLER: BREANNA Cuevas
[2020-04-16 12:00] LABS: Glucose,Whole Blood 98 mg/dL (75-99)
[2020-04-16 12:36] LABS: HCT 38.2 % (34.0-46.0); HGB 12.8 gm/dL (11.4-16.0); MCH 27.8 pg (25.0-35.0); MCHC 33.6 g/dL (31.0-37.0); MCV 82.7 fL (80.0-100.0); Platelet Count 291 k/uL (150-450); RBC 4.63 m/uL (3.80-5.40); RDW 14.7 % (11.5-15.5); WBC 6.3 k/uL (3.8-10.6)
[2020-04-16 12:50] LABS: African American GFR (CKD) >90 (>60 ml/min/1.73 sqM); Anion Gap 8 mmol/L; Blood Urea Nitrogen 15 mg/dL (7-17); Calcium 9.8 mg/dL (8.4-10.2); Carbon Dioxide 24 mmol/L (22-30); Chloride 102 mmol/L (98-107); Glucose 107 mg/dL (74-99); Magnesium 2.1 mg/dL (1.6-2.3); Non-African American GFR(CKD) >90 (>60 ml/min/1.73 sqM); Potassium 3.7 mmol/L (3.5-5.1); Sodium 134 mmol/L (137-145)
--- NOTE | 2020-04-16 16:51 | P.PN ---
Subjective Progress Note Date: 04/16/20 The patient was seen at bedside and she said that she feels about the same as yesterday. She denies any worsening of her neurological symptoms. Denies of any nausea any vomiting. Objective - Vital Signs Vital signs: Vital Signs Temp 98.3 F 04/16/20 08:13 Pulse 68 04/16/20 08:13 Resp 16 04/16/20 08:13 BP 116/75 04/16/20 08:13 Pulse Ox 97 04/16/20 08:13 Intake & Output 04/15/20 04/16/20 04/16/20 18:59 06:59 18:59 Weight 108.862 kg Other: Voiding Method Toilet Toilet # Voids 2 1 1 - Exam GENERAL: The patient is lying in bed and is not in acute distress. NEUROLOGICAL: Higher mental function: The patient is awake, alert, oriented to self, place and time. Patient was able to identify objects such as a pen, watch and phone correctly. Patient is following commands. No aphasia and no neglect. Cranial nerves: The pupils are round, equal and reactive to light and accommodation. Visual lorenzana are full to confrontation throughout. Extraocular movement is intact no nystagmus is noted. Facial sensation is normal to touch throughout. The facial strength is normal throughout. Hearing is decrease bilaterally to hand rub. Tongue is midline and moved [id number] without any difficulty. No dysarthria is noted. Shoulder shrug is normal bilaterally. Motor: Gait is normal with normal arm swings. The strength is 5 over 5 throughout. Normal tone and bulk. Cerebellum: Normal finger to nose bilaterally. Sensation: Sensation is normal to touch throughout. Reflexes (right/left): 2+ throughout except ankles are 1+ bilaterally. Plantars are downgoing bilaterally. - Labs CBC & Chem 7: 04/16/20 12:01 04/16/20 12:01 Labs: Abnormal Lab Results - Last 24 Hours (Table) 04/16/20 Range/Units 12:01 Sodium 134 L (137-145) mmol/L Glucose 107 H (74-99) mg/dL Assessment and Plan Assessment: This is a 64-year-old woman that presented to the emergency department on 04/15/2020 who is accompanied by her daughter for multiple complaints, slurring of the speech and unsteady walking for 2-4 weeks, bilateral hearing loss after bilateral ear infection in 4-5 weeks, decrease appetite and more sleepy. Subjective unsteady gait, slurring the speech. On examination it was normal. Not stroke Neck pain at the base Atrial fibrillation Bilateral hearing loss for last for 5 weeks since the bilateral ear infection diabetes mellitus hyperlipidemia hypertension sleep apnea on the CPAP machine Plan: MR the brain was ordered to rule out stroke. MRI was reported as no MRI evidence of recent infarct. Background mild diffuse cerebral atrophy and mild to minimal chronic small vessel ischemic changes along with mild inferior chronic right maxillary sinusitis. MRI of the cervical spine was ordered because she is complaining of neck pain and felt like she is having the unsteady gait but the examination was normal and it was reported as slight scoliotic curvature with mild multilevel degenerative changes in the mid to lower cervical spine. carotid duplex: Reported as no hemodynamically significant internal carotid artery stenosis on either side. Continue aspirin 81 mg home dose lipitor 80mg daily. I feel it Lipitor 80 mg is a high dose and I would recommend decreasing it to 40 mg but will defer to primary team or cardiology to modify medication. 2-D echo: Reported as mild concentric left ventricle hypertrophy. Ejection fraction of 6065%. Normal left atrial size by volume. Right total Zack hypertrophy of the atrial septum is present. Ordered vitamin B12 and folate. Also ordered HbA1c. Lipid profile triglycerides 106, cholesterol 138, LDL is 80 and HDL is 36 and that this was done on 03/08/2020 there is no need to repeat it. Consulted the physical therapy and occupation therapy as well as [facility] EEG is not recommended at this time since this is unlikely seizure. I recommend ENT consult regarding the patient's hearing loss. If the unable to get ENT as an inpatient and then the recommend outpatient. Cardiology is on board. If everything is negative then possibly can have peripheral neuropathy that can cause patient unsteady gait. Resumed Eliquis 5 mg twice a day for atrial fibrillation. From a neurology perspective of the there is no further workup is needed at this point. Patient needs to follow-up with a neurologist within 2 weeks. Maykel Mao M.D. Neuro-hospitalist Time with Patient: Less than 30
[2020-04-16] MEDS ORDERED: INSULIN DETEMIR (LEVEMIR) 100 UNIT/ML SYR SQ SCH (21:00)
[2020-04-16 21:44] LABS: Hemoglobin A1C 8.6 % (4.0-6.0)
== END 2020-04-16 14:02 ==
LOC: EC 10:10 → 1SOBS 13:33
PROVIDERS: ADMIT Family Medicine; ATTEND Family Medicine
DX: R41.0 Disorientation, unspecified (principal); R53.83 Other fatigue; R68.89 Other general symptoms and signs; R47.81 Slurred speech; R53.81 Other malaise; J32.0 Chronic maxillary sinusitis; R26.81 Unsteadiness on feet; G47.10 Hypersomnia, unspecified; E11.65 Type 2 diabetes mellitus with hyperglycemia; E87.1 Hypo-osmolality and hyponatremia; I48.0 Paroxysmal atrial fibrillation; I95.9 Hypotension, unspecified; H91.93 Unspecified hearing loss, bilateral; K21.9 Gastro-esophageal reflux disease without esophagitis; E78.5 Hyperlipidemia, unspecified; G47.33 Obstructive sleep apnea (adult) (pediatric); M47.892 Other spondylosis, cervical region; R94.31 Abnormal electrocardiogram [ECG] [EKG]; E66.9 Obesity, unspecified; I67.82 Cerebral ischemia; G31.9 Degenerative disease of nervous system, unspecified; F02.80 Dementia in other diseases classified elsewhere, unspecified severity, without behavioral disturbance, psychotic disturbance, mood disturbance, and anxiety; I11.9 Hypertensive heart disease without heart failure; Z68.41 Body mass index [BMI] 40.0-44.9, adult; Z79.82 Long term (current) use of aspirin; Z79.899 Other long term (current) drug therapy; Z79.4 Long term (current) use of insulin; Z79.01 Long term (current) use of anticoagulants; Z79.890 Hormone replacement therapy; Z88.1 Allergy status to other antibiotic agents; Z99.89 Dependence on other enabling machines and devices; Z90.49 Acquired absence of other specified parts of digestive tract; Z90.710 Acquired absence of both cervix and uterus; Z98.51 Tubal ligation status; Z98.890 Other specified postprocedural states; Z87.448 Personal history of other diseases of urinary system; Z87.09 Personal history of other diseases of the respiratory system; Z86.79 Personal history of other diseases of the circulatory system; Z86.73 Personal history of transient ischemic attack (TIA), and cerebral infarction without residual deficits; Z86.19 Personal history of other infectious and parasitic diseases; Z82.49 Family history of ischemic heart disease and other diseases of the circulatory system; Z83.3 Family history of diabetes mellitus
CPT/HCPCS: 96360; 96361; 99285; 36415; 93005; 93306; 97162; 92523; 82747; 80053; 80048; 82607; 82140; 83605; 83735 ×2; 84100; 84443; 84484; 85025; 85027; 85610; 85730; 81001; 83036; 71046; 93880; 70450; 70551; 72141; G0378 ×2

== ENCOUNTER 2022-05-05 13:58 | Day surgery (SDC) | payer MEDICARE, BC ==
[~2022-05-05 13:58] MED LIST: SODIUM CHLORIDE 0.9% 1,000 ML IV SCH
[2022-05-05 14:17] LABS: Glucose,Whole Blood 120 mg/dL (70-110)
[2022-05-05 14:28] VITALS: BP 128/76; PULSE 86; RESP 16; TEMP 97.3
[2022-05-05] MEDS ORDERED: LIDOCAINE 1% INJ 10MG/ML (30 ML VIAL-PF) SQ ONE (17:21)
--- NOTE | 2022-05-05 17:46 | P.EPPROC ---
- EP Procedure Note Electrophysiology Procedure Note: Loop monitor implant Primary physicians: Dr. Arenas Ict Business Analyst: Dr. Ventura Indication: Recurrent palpitations since of the chest pain shortness of breath/A. fib management Patient was brought to the EP lab in a fasting state. Written informed consent was obtained prior to the procedure. The left pectoral area was prepped and draped per protocol. Intravenous antibiotic was administered preoperatively. A subcutaneous Loop monitor was implanted successfully and the wound was closed pe r protocol. The device was programmed to detect significant janae- arrhythmic and tachy-arrhythmic events, per protocol. Device and programming details: A. fib protocol /detection Patient underwent EP procedure under conscious sedation/moderate sedation, monitoring of the level of consciousness and physiologic parameters including but not limited to vital signs and oxygenation. Patient tolerated the procedure well without any acute complications. Start time: 5:20 PM Stop time: I 30 p.m.
--- NOTE | 2022-05-05 17:47 | P.PRLE ---
RE: Kerry Pablo Dear Rusty Payne underwent successful implantation of a loop monitor for recurrent palpitations. Angina she has had recurrent chest discomfort and shortness of breath and it turns out that this was related to her arrhythmias Hopefully this will help us manage the atrial tachycardia and atrial fibrillation in a timely manner Thank you for entrusting me with the care of the patient Warm regards Sincerely Guru Ventura
== END 2022-05-05 18:06 | disposition home or self-care (01) ==
LOC: CATHEP 13:58
PROVIDERS: ATTEND Internal Medicine Clinical Cardiac Electrophysiology
DX: I48.0 Paroxysmal atrial fibrillation (principal); I47.1 Supraventricular tachycardia; I10 Essential (primary) hypertension; E11.9 Type 2 diabetes mellitus without complications; Z79.4 Long term (current) use of insulin; E78.5 Hyperlipidemia, unspecified; E66.9 Obesity, unspecified; Z88.1 Allergy status to other antibiotic agents; Z79.01 Long term (current) use of anticoagulants; Z79.02 Long term (current) use of antithrombotics/antiplatelets; Z79.82 Long term (current) use of aspirin; Z79.899 Other long term (current) drug therapy
CPT/HCPCS: 33285; J0690; J2001